=== PATIENT | female | born 1965 | race Caucasian/White ===

== ENCOUNTER → 2017-01-21 | Outpatient (CLI) | payer MEDICAID ==
[2016-05-16 10:22] VITALS: BP 119/72
[2017-01-21 15:20] LABS: BILIRUBIN,URINE NEGATIVE (NEGATIVE); BLOOD/HEMOGLOBIN,URINE 1+ (NEGATIVE); GLUCOSE, URINE NEGATIVE (NEGATIVE); KETONES,URINE NEGATIVE (NEGATIVE); LEUKOCYTE ESTERASE ,URINE 2+ (NEGATIVE); NITRITES,URINE NEGATIVE (NEGATIVE); PH,URINE 6.5 (5.0 - 8.0); PROTEIN,URINE NEGATIVE (NEGATIVE); UROBILINOGEN,URINE NORMAL (NORMAL)
[2017-01-21 15:28] LABS: AMORPHOUS SEDIMENT,UR TRACE /HPF (NEGATIVE); APPEARANCE,URINE CLEAR (CLEAR); BACTERIA,URINE TRACE /HPF (NEGATIVE); COLOR,URINE YELLOW (YELLOW); MUCUS,URINE RARE /HPF (NEGATIVE); SQUAMOUS EPITHELIAL CELL,UR FEW /HPF (NEGATIVE)
== END ==
LOC: LAB 14:57
PROVIDERS: ATTEND Family Medicine
DX: R30.9 Painful micturition, unspecified (principal)
CPT/HCPCS: 81001

== ENCOUNTER 2021-08-27 13:02 | Observation (INO) ==
--- NOTE | 2021-08-27 13:23 | DR.NAUSEAF ---
HPI Time Seen Time Seen by Provider: 08/27/21 13:23 Complaints Chief Complaint:: Family states pt has c/o nausea since this am. She lives with a family member that is currently admitted for covid. Pt unable to provide any information. COVID-19 Coronavirus risk:travel/contact w/high risk person: Yes Has patient experienced Coronavirus symptoms: No Mode of Arrival Mode of Arrival: Wheelchair Timing Onset of Chief Complaint: 08/27/21 PMH PMH Past Medical History: Yes Past Medical History: Seizures Past Surgical History: Yes Surgical History: Other Family History History of Family Medical Conditions: Yes Family Medical History: Cancer, Heart Failure and Hypertension Social History Do you use any recreational Drugs:: No Travel Risk Coronavirus risk:travel/contact w/high risk person: Yes Has patient experienced Coronavirus symptoms: No Infectious screening In the last 2 months have you had wt loss of >10#?: NO Have you had fever, night sweats or hemotysis?: No Have you traveled outside the country in the last 6 months?: No Isolation: Droplet PE Vital Signs Vitals: Temperature 98.5 F Pulse Rate 70 Respiratory Rate 18 Blood Pressure [Left Calf] 119/72 Blood Pressure [Right Arm] 128/81 Blood Pressure [Left Arm] 110/62 Blood Pressure 128/83 O2 Sat by Pulse Oximetry 94 ROR Labs Reviewed Result Diagrams: 08/27/21 13:50 08/27/21 13:50 Laboratory: WBC 3.1 X10^3/uL (3.6-10.0) L 08/27/21 13:50 RBC 4.78 X10^6/uL (3.5-5.4) 08/27/21 13:50 Hgb 12.4 g/dL (12.0-16.0) 08/27/21 13:50 Hct 37.3 % (36.0-47.0) 08/27/21 13:50 MCV 78.1 fL (80.0-100.0) L 08/27/21 13:50 MCH 26.0 pg (27.0-34.0) L 08/27/21 13:50 MCHC 33.3 g/dL (33.0-35.0) 08/27/21 13:50 RDW 15.5 % (11.6-16.5) 08/27/21 13:50 Plt Count 212 X10^3/uL (150.0-450.0) 08/27/21 13:50 MPV 6.3 fL (7.4-11.0) L 08/27/21 13:50 Neut % (Auto) 40.1 % (42.0-75.0) L 08/27/21 13:50 Lymph % (Auto) 46.2 % (21.0-51.0) 08/27/21 13:50 [place] % (Auto) 12.9 % (0.0-13.0) 08/27/21 13:50 Eos % (Auto) 0.2 % (0.9-2.9) L 08/27/21 13:50 Baso % (Auto) 0.6 % (0.2-1.0) 08/27/21 13:50 Neut # (Auto) 1.2 x10^3/uL (2.2-4.8) L 08/27/21 13:50 Lymph # (Auto) 1.4 X10^3/uL (1.3-2.9) 08/27/21 13:50 [place] # (Auto) 0.4 x10^3/uL (0.3-0.8) 08/27/21 13:50 Eos # (Auto) 0.0 x10^3/uL (0.0-0.2) 08/27/21 13:50 Baso # (Auto) 0.0 X10^3/uL (0.0-0.1) 08/27/21 13:50 Absolute Nucleated RBC 0.2 /100WBC 08/27/21 13:50 D-Dimer 0.32 ug/ml (0.0-0.57) 08/27/21 13:52 Sample Site Lr 08/27/21 14:38 ABG pH 7.370 (7.35-7.45) 08/27/21 14:38 ABG pCO2 48.0 mmHg (35.0-45.0) H 08/27/21 14:38 ABG pO2 63.0 mmHg (80.0-100.0) L 08/27/21 14:38 ABG HCO3 27.7 mmol/L (22-26) H 08/27/21 14:38 ABG O2 Saturation 91.0 % (90-100) 08/27/21 14:38 ABG Base Excess 1.8 mmol/L (-2.0-2.0) 08/27/21 14:38 [place] Test Pos 08/27/21 14:38 A-a Gradient 27.0 mmHg 08/27/21 14:38 FiO2 21.0 08/27/21 14:38 Blood Gas 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 08/27/21 14:38 Sodium 134 mmol/L (136-145) L 08/27/21 13:50 Corrected Sodium TNP 08/27/21 13:50 Potassium 4.0 mmol/L (3.5-5.1) 08/27/21 13:50 Chloride 98 mmol/L (98-107) 08/27/21 13:50 Carbon Dioxide 32.0 mmol/L (21-32) 08/27/21 13:50 BUN 6 mg/dL (7-18) L 08/27/21 13:50 Creatinine 0.91 mg/dL (0.55-1.02) 08/27/21 13:50 Est GFR (MDRD) Af Amer > 60 (>60) 08/27/21 13:50 Est GFR (MDRD) Non-Af > 60 (>60) 08/27/21 13:50 Glucose 98 mg/dL (65-99) 08/27/21 13:50 Calcium 8.2 mg/dL (8.5-10.1) L 08/27/21 13:50 Corrected Calcium 9.0 mg/dL (8.5-10.1) 08/27/21 13:50 Ferritin 128 ng/mL (8-252) 08/27/21 13:50 Total Bilirubin 0.20 mg/dL (0.2-1.0) 08/27/21 13:50 AST 16 Units/L (15-37) 08/27/21 13:50 ALT 21 Units/L (12-78) 08/27/21 13:50 Alkaline Phosphatase 106 Units/L (46-116) 08/27/21 13:50 C-Reactive Protein 3.70 mg/L (0-3.0) H 08/27/21 13:50 B-Natriuretic Peptide 18.4 pg/mL (0-79) 08/27/21 13:52 Total Protein 6.5 g/dL (6.4-8.2) 08/27/21 13:50 Albumin 3.0 g/dL (3.4-5.0) L 08/27/21 13:50 Globulin 3.5 g/dL (2.5-4.5) 08/27/21 13:50 Albumin/Globulin Ratio 0.9 Ratio (1.1-2.1) L 08/27/21 13:50 Amylase 34 Units/L (25-115) 08/27/21 13:50 Lipase 98 Units/L (73-393) 08/27/21 13:50 Specimen Type Cancelled 08/27/21 14:05 Urine Color Cancelled 08/27/21 14:05 Urine Appearance Cancelled 08/27/21 14:05 Urine pH Cancelled 08/27/21 14:05 Ur Specific [place] Cancelled 08/27/21 14:05 Urine Protein Cancelled 08/27/21 14:05 Urine Glucose (UA) Cancelled 08/27/21 14:05 Urine Ketones Cancelled 08/27/21 14:05 Urine Occult Blood Cancelled 08/27/21 14:05 Urine Nitrite Cancelled 08/27/21 14:05 Urine Bilirubin Cancelled 08/27/21 14:05 Urine Urobilinogen Cancelled 08/27/21 14:05 Ur Leukocyte Esterase Cancelled 08/27/21 14:05 Urine RBC 0-2 /HPF (0-3) 08/27/21 14:00 Urine WBC None seen /HPF (0-5) 08/27/21 14:00 Ur Squamous Epith Cells Few /HPF (NEGATIVE) 08/27/21 14:00 Urine Bacteria Trace /HPF (NEGATIVE) 08/27/21 14:00 Urine Mucus Few /HPF (NEGATIVE) 08/27/21 14:00 Ur Culture Indicated? No/not indicated 08/27/21 14:00 Influenza Type A Ag Negative-presumptive (NEGATIVE) 08/27/21 13:48 Influenza Type B Ag Negative-presumptive (NEGATIVE) 08/27/21 13:48 SARS CoV-2 RNA Rapid MOJGAN Positive (NEGATIVE) A 08/27/21 13:48 Opioid Opioid Risk Tool Age (Rosalio box if 16-45): No History of Preadolescent Sexual Abuse: No Total: 0 Total Score Risk Category: Low Risk Copyright: [place] LR predicting aberrant behaviors Instructions Forms: EUA Consent
[2021-08-27] MEDS ORDERED: NS 1,000 ML IV 1,000 ML IV ONE (13:31)
[2021-08-27] MEDS ORDERED: ZOFRAN INJ 4 MG VIAL IVP ONE (13:31)
[2021-08-27] MEDS ORDERED: NS 1,000 ML IV 1,000 ML ONE (13:39)
[2021-08-27] MEDS ORDERED: ZOFRAN INJ 4 MG VIAL ONE (13:39)
[2021-08-27 14:01] LABS: BASOPHILS % (AUTO) 0.6 % (0.2-1.0); EOSINOPHILS % (AUTO) 0.2 % (0.9-2.9); HEMATOCRIT 37.3 % (36.0-47.0); HEMOGLOBIN 12.4 g/dL (12.0-16.0); LYMPHOCYTES # (AUTO) 1.4 X10^3/uL (1.3-2.9); LYMPHOCYTES % (AUTO) 46.2 % (21.0-51.0); MEAN CORPUSCULAR HGB CONC 33.3 g/dL (33.0-35.0); MEAN CORPUSCULAR VOLUME 78.1 fL (80.0-100.0); MEAN PLATELET VOLUME 6.3 fL (7.4-11.0); MONOCYTES # (AUTO) 0.4 x10^3/uL (0.3-0.8); MONOCYTES % (AUTO) 12.9 % (0.0-13.0); NEUTROPHILS # (AUTO) 1.2 x10^3/uL (2.2-4.8); NEUTROPHILS % (AUTO) 40.1 % (42.0-75.0); PLATELET COUNT 212 X10^3/uL (150.0-450.0); RED BLOOD COUNT 4.78 X10^6/uL (3.5-5.4); RED CELL DISTRIBUTION WIDTH 15.5 % (11.6-16.5); WHITE BLOOD COUNT 3.1 X10^3/uL (3.6-10.0)
[2021-08-27 14:09] LABS: ALANINE AMINOTRANSFERASE 21 Units/L (12-78); ALKALINE PHOSPHATASE 106 Units/L (46-116); AMYLASE 34 Units/L (25-115); ASPARTATE AMINO TRANSFERASE 16 Units/L (15-37); BLOOD UREA NITROGEN 6 mg/dL (7-18); CALCIUM 8.2 mg/dL (8.5-10.1); CHLORIDE 98 mmol/L (98-107); CREATININE 0.91 mg/dL (0.55-1.02); LIPASE 98 Units/L (73-393); SODIUM 134 mmol/L (136-145); TOTAL PROTEIN 6.5 g/dL (6.4-8.2); eGFR NON BLACK RACES > 60 (>60)
[2021-08-27 14:24] LABS: BILIRUBIN,URINE NEGATIVE (NEGATIVE); BLOOD/HEMOGLOBIN,URINE 1+ (NEGATIVE); GLUCOSE, URINE NEGATIVE (NEGATIVE); KETONES,URINE NEGATIVE (NEGATIVE); LEUKOCYTE ESTERASE ,URINE NEGATIVE (NEGATIVE); NITRITES,URINE NEGATIVE (NEGATIVE); PROTEIN,URINE NEGATIVE (NEGATIVE); UROBILINOGEN,URINE NORMAL (NORMAL)
[2021-08-27 14:35] LABS: APPEARANCE,URINE CLEAR (CLEAR); COLOR,URINE YELLOW (YELLOW)
[2021-08-27 14:36] LABS: BACTERIA,URINE TRACE /HPF (NEGATIVE); RBC,URINE 0-2 /HPF (0-3); SQUAMOUS EPITHELIAL CELL,UR FEW /HPF (NEGATIVE)
[2021-08-27 14:37] LABS: MUCUS,URINE FEW /HPF (NEGATIVE)
--- NOTE | 2021-08-27 14:57 | RAD ---
HISTORYSOB, COUGHING, COVID + VNS IMPLANTSTUDYCHEST, 1 VIEWCOMPARISONNoneFINDINGSAccounting for AP technique and low lung volumes, the cardiac silhouette is normal in size. Vagus nerve stimulator noted. Imaged lungs are hypoinflated but grossly clear. There is no significant pleural effusion or pneumothorax. 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
[2021-08-27 15:00] LABS: ABG BASE EXCESS 1.8 mmol/L (-2.0-2.0); ABG HCO3 27.7 mmol/L (22-26)
[2021-08-27 15:01] LABS: ABG ALLEN TEST POS
[2021-08-27] MEDS ORDERED: REGEN-COV VIAL 10 ML, DRUG FILTER EXTENSION SET * 1 EA in NS 100 ML IV 100 ML IV ONE ×2 (17:13)
[2021-08-27] MEDS ORDERED: TYLENOL 325 MG TAB PO ONE (17:13)
[2021-08-27] MEDS ORDERED: ZOFRAN INJ 4 MG VIAL IVP PRN (17:31)
[2021-08-27 19:14] VITALS: BMI 31.6
[2021-08-27] MEDS: NS 1,000 ML IV 1,000 ML IV SCH (19:31)
[2021-08-27] MEDS: BROVANA IN SCH ×2 (21:03→21:54)
[2021-08-27] MEDS: PULMICORT NEB TX 0.5 MG NEB SCH ×2 (21:03→21:54)
[2021-08-27] MEDS ORDERED: KEPPRA TAB 500 MG ONE (21:16)
[2021-08-27] MEDS: LAMICTAL TAB 100 MG PO SCH (21:20)
[2021-08-27] MEDS ORDERED: KEPPRA TAB 500 MG PO SCH (22:00)
[2021-08-27] MEDS: PEPCID 20 MG IV PREMIX* 20 MG/50 ML BAG IV SCH (22:23)
[2021-08-28] MEDS: NS 1,000 ML IV 1,000 ML IV SCH ×4 (02:00→18:10)
[2021-08-28 05:16] LABS: BASOPHILS % (AUTO) 0.4 % (0.2-1.0); EOSINOPHILS % (AUTO) 0.3 % (0.9-2.9); HEMATOCRIT 36.6 % (36.0-47.0); HEMOGLOBIN 12.2 g/dL (12.0-16.0); LYMPHOCYTES # (AUTO) 1.5 X10^3/uL (1.3-2.9); LYMPHOCYTES % (AUTO) 44.9 % (21.0-51.0); MEAN CORPUSCULAR HGB CONC 33.2 g/dL (33.0-35.0); MEAN CORPUSCULAR VOLUME 78.3 fL (80.0-100.0); MEAN PLATELET VOLUME 6.3 fL (7.4-11.0); MONOCYTES # (AUTO) 0.3 x10^3/uL (0.3-0.8); NEUTROPHILS # (AUTO) 1.5 x10^3/uL (2.2-4.8); NEUTROPHILS % (AUTO) 45.4 % (42.0-75.0); PLATELET COUNT 204 X10^3/uL (150.0-450.0); RED BLOOD COUNT 4.68 X10^6/uL (3.5-5.4); RED CELL DISTRIBUTION WIDTH 15.6 % (11.6-16.5); WHITE BLOOD COUNT 3.4 X10^3/uL (3.6-10.0)
[2021-08-28 05:29] LABS: ALANINE AMINOTRANSFERASE 22 Units/L (12-78); ALBUMIN 2.9 g/dL (3.4-5.0); ALKALINE PHOSPHATASE 102 Units/L (46-116); ASPARTATE AMINO TRANSFERASE 17 Units/L (15-37); BLOOD UREA NITROGEN 7 mg/dL (7-18); CALCIUM 7.8 mg/dL (8.5-10.1); CARBON DIOXIDE 30.1 mmol/L (21-32); CHLORIDE 102 mmol/L (98-107); COR CA(FOR HYPOALB) 8.7 mg/dL (8.5-10.1); MAGNESIUM 2.2 mg/dL (1.7-2.9); SODIUM 138 mmol/L (136-145); TOTAL PROTEIN 6.3 g/dL (6.4-8.2); eGFR NON BLACK RACES > 60 (>60)
[2021-08-28] MEDS: KEPPRA TAB 500 MG PO SCH ×3 (07:37→20:59)
[2021-08-28] MEDS ORDERED: REGEN-COV VIAL 10 ML, DRUG FILTER EXTENSION SET * 1 EA in NS 100 ML IV 100 ML IV ONE ×2 (08:13)
[2021-08-28] MEDS ORDERED: TYLENOL 325 MG TAB PO ONE (08:20)
[2021-08-28] MEDS ORDERED: SOLU-Medrol 125 MG VIAL IVP ONE (08:20)
[2021-08-28] MEDS ORDERED: BENADRYL INJ 50 MG VIAL IV ONE (08:20)
[2021-08-28] MEDS: LOVENOX INJ 30 MG SYR SC SCH ×2 (09:05→21:02)
[2021-08-28] MEDS: LAMICTAL TAB 100 MG PO SCH ×2 (09:06→20:59)
--- NOTE | 2021-08-28 09:53 | DR.H&P ---
H&P History & Physical for Day of: H&P Date: 08/27/21 Chief Complaint Chief Complaint: Nausea Allergies Allergies Allergy/AdvReac Type Severity Reaction Status Date / Time No Known Drug Allergies Allergy Verified 03/05/18 10:04 History of Present Illness History of Present Illness: 55-year-old white female who presented to ED for nausea. She reports she lives with a family member who is currently in hospital for Covid-19. Patient is a poor historian and is difficult to take a history on her. Past Medical History Past Medical History: Seizures Additional Medical History: CP Past Surgical History Surgical History: Other Family History Family Medical History: Cancer, Heart Failure and Hypertension Social History Does patient currently use any type of tobacco product: No Have you used tobacco products in the last 12 months: No Type of Tobacco Use: None Does any household member use tobacco: No Alcohol Use: None Drug Use: None Medications Home Medications: No Known Drug Allergies Allergy (Verified 03/05/18 10:04) Labs Result Diagrams: 08/28/21 04:35 08/28/21 04:35 Labs: Laboratory WBC 3.4 X10^3/uL (3.6-10.0) L 08/28/21 04:35 RBC 4.68 X10^6/uL (3.5-5.4) 08/28/21 04:35 Hgb 12.2 g/dL (12.0-16.0) 08/28/21 04:35 Hct 36.6 % (36.0-47.0) 08/28/21 04:35 MCV 78.3 fL (80.0-100.0) L 08/28/21 04:35 MCH 26.0 pg (27.0-34.0) L 08/28/21 04:35 MCHC 33.2 g/dL (33.0-35.0) 08/28/21 04:35 RDW 15.6 % (11.6-16.5) 08/28/21 04:35 Plt Count 204 X10^3/uL (150.0-450.0) 08/28/21 04:35 MPV 6.3 fL (7.4-11.0) L 08/28/21 04:35 Neut % (Auto) 45.4 % (42.0-75.0) 08/28/21 04:35 Lymph % (Auto) 44.9 % (21.0-51.0) 08/28/21 04:35 [place] % (Auto) 9.0 % (0.0-13.0) 08/28/21 04:35 Eos % (Auto) 0.3 % (0.9-2.9) L 08/28/21 04:35 Baso % (Auto) 0.4 % (0.2-1.0) 08/28/21 04:35 Neut # (Auto) 1.5 x10^3/uL (2.2-4.8) L 08/28/21 04:35 Lymph # (Auto) 1.5 X10^3/uL (1.3-2.9) 08/28/21 04:35 [place] # (Auto) 0.3 x10^3/uL (0.3-0.8) 08/28/21 04:35 Eos # (Auto) 0.0 x10^3/uL (0.0-0.2) 08/28/21 04:35 Baso # (Auto) 0.0 X10^3/uL (0.0-0.1) 08/28/21 04:35 Absolute Nucleated RBC 0.2 /100WBC 08/28/21 04:35 PT 13.4 SECONDS (11.8-14.3) 08/28/21 04:35 INR Target Range - 08/28/21 04:35 INR 1.07 (0.8-1.3) 08/28/21 04:35 APTT 30.9 SECONDS (22.9-36.5) 08/28/21 04:35 PTT Comment - 08/28/21 04:35 D-Dimer 0.32 ug/ml (0.0-0.57) 08/27/21 13:52 Sample Site Lr 08/27/21 14:38 ABG pH 7.370 (7.35-7.45) 08/27/21 14:38 ABG pCO2 48.0 mmHg (35.0-45.0) H 08/27/21 14:38 ABG pO2 63.0 mmHg (80.0-100.0) L 08/27/21 14:38 ABG HCO3 27.7 mmol/L (22-26) H 08/27/21 14:38 ABG O2 Saturation 91.0 % (90-100) 08/27/21 14:38 ABG Base Excess 1.8 mmol/L (-2.0-2.0) 08/27/21 14:38 [place] Test Pos 08/27/21 14:38 A-a Gradient 27.0 mmHg 08/27/21 14:38 FiO2 21.0 08/27/21 14:38 Blood 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 08/27/21 14:38 Sodium 138 mmol/L (136-145) 08/28/21 04:35 Corrected Sodium TNP 08/28/21 04:35 Potassium 3.9 mmol/L (3.5-5.1) 08/28/21 04:35 Chloride 102 mmol/L (98-107) 08/28/21 04:35 Carbon Dioxide 30.1 mmol/L (21-32) 08/28/21 04:35 BUN 7 mg/dL (7-18) 08/28/21 04:35 Creatinine 0.80 mg/dL (0.55-1.02) 08/28/21 04:35 Est GFR (MDRD) Af Amer > 60 (>60) 08/28/21 04:35 Est GFR (MDRD) Non-Af > 60 (>60) 08/28/21 04:35 Glucose 91 mg/dL (65-99) 08/28/21 04:35 Calcium 7.8 mg/dL (8.5-10.1) L 08/28/21 04:35 Corrected Calcium 8.7 mg/dL (8.5-10.1) 08/28/21 04:35 Magnesium 2.2 mg/dL (1.7-2.9) 08/28/21 04:35 Ferritin 128 ng/mL (8-252) 08/27/21 13:50 Total Bilirubin 0.20 mg/dL (0.2-1.0) 08/28/21 04:35 AST 17 Units/L (15-37) 08/28/21 04:35 ALT 22 Units/L (12-78) 08/28/21 04:35 Alkaline Phosphatase 102 Units/L (46-116) 08/28/21 04:35 C-Reactive Protein 3.70 mg/L (0-3.0) H 08/27/21 13:50 B-Natriuretic Peptide 18.4 pg/mL (0-79) 08/27/21 13:52 Total Protein 6.3 g/dL (6.4-8.2) L 08/28/21 04:35 Albumin 2.9 g/dL (3.4-5.0) L 08/28/21 04:35 Globulin 3.4 g/dL (2.5-4.5) 08/28/21 04:35 Albumin/Globulin Ratio 0.9 Ratio (1.1-2.1) L 08/28/21 04:35 Amylase 34 Units/L (25-115) 08/27/21 13:50 Lipase 98 Units/L (73-393) 08/27/21 13:50 Specimen Type Cancelled 08/27/21 14:05 Urine Color Cancelled 08/27/21 14:05 Urine Appearance Cancelled 08/27/21 14:05 Urine pH Cancelled 08/27/21 14:05 Ur Specific [place] Cancelled 08/27/21 14:05 Urine Protein Cancelled 08/27/21 14:05 Urine Glucose (UA) Cancelled 08/27/21 14:05 Urine Ketones Cancelled 08/27/21 14:05 Urine Occult Blood Cancelled 08/27/21 14:05 Urine Nitrite Cancelled 08/27/21 14:05 Urine Bilirubin Cancelled 08/27/21 14:05 Urine Urobilinogen Cancelled 08/27/21 14:05 Ur Leukocyte Esterase Cancelled 08/27/21 14:05 Urine RBC 0-2 /HPF (0-3) 08/27/21 14:00 Urine WBC None seen /HPF (0-5) 08/27/21 14:00 Ur Squamous Epith Cells Few /HPF (NEGATIVE) 08/27/21 14:00 Urine Bacteria Trace /HPF (NEGATIVE) 08/27/21 14:00 Urine Mucus Few /HPF (NEGATIVE) 08/27/21 14:00 Ur Culture Indicated? No/not indicated 08/27/21 14:00 Influenza Type A Ag Negative-presumptive (NEGATIVE) 08/27/21 13:48 Influenza Type B Ag Negative-presumptive (NEGATIVE) 08/27/21 13:48 SARS CoV-2 RNA Rapid MOJGAN Positive (NEGATIVE) A 08/27/21 13:48 Review of Systems Constitutional: Weakness Eyes: No Symptoms Reported ENT: No Symptoms Reported Respiratory: Cough Cardiovascular: No Symptoms Reported Gastrointestinal: Nausea Genitourinary: No Symptoms Reported Musculoskeletal: No Symptoms Reported Skin: No Symptoms Reported Neurological: No Symptoms Reported Physical Exam Vital Signs: Temperature 99.2 F Pulse Rate 70 Respiratory Rate 20 Blood Pressure [Left Calf] 119/72 Blood Pressure [Right Arm] 128/81 Blood Pressure [Left Arm] 110/62 Blood Pressure 132/79 O2 Sat by Pulse Oximetry 100 Oriented: Unable to test Eyes: Normal Ear: Normal Nose: Normal Throat: Normal Respiratory: Rhonchi Throughout Cardiovascular: Normal : Normal Auscultation: Bowel Sounds: Normal Palpation: Normal Tenderness: Normal Skin: Normal Musculoskeletal: Normal Psychiatric: Normal Mood Description: Calm Affect: Normal Speech Pattern: Unclear Assessment/Plan (1) Intellectual disability: Status: Chronic (2) Epilepsy: Qualifiers: Epilepsy type: epileptic spasms Intractability: not intractable Status epilepticus: without status epilepticus Qualified Code(s): G40.822 - Epileptic spasms, not intractable, without status epilepticus Status: Chronic (3) COVID-19: Status: Acute Plan: Regenecov protocol (4) Hypoxia: Status: Acute Plan: supplemental O2 Review H&P Reviewed: Yes Patient was examined?: Yes
[2021-08-28] MEDS: PEPCID 20 MG IV PREMIX* 20 MG/50 ML BAG IV SCH ×2 (10:19→21:00)
[2021-08-28] MEDS: BROVANA IN SCH ×2 (10:19→20:56)
[2021-08-28] MEDS: PULMICORT NEB TX 0.5 MG NEB SCH ×2 (10:20→20:56)
--- NOTE | 2021-08-28 18:02 | PCM.PROG ---
Progress Note Progress Note for Day of Date of Exam: 08/28/21 Subjective Subjective: Awake this am. Has not had Regene Cov yet. Will have infusion done this am per protocol. O2 sat is 97% on 2L [place] Past Medical Family Social History Past Med/Fam/Surg Hx: No changes since H&P Allergies: Allergies No Known Drug Allergies Allergy (Verified 03/05/18 10:04) Review of Systems ROS: No change since H&P Vital Signs and I&O's Vital Signs: Temperature 97.6 F Pulse Rate 75 Respiratory Rate 23 Blood Pressure [Left Calf] 119/72 Blood Pressure [Right Arm] 128/81 Blood Pressure [Left Arm] 110/62 Blood Pressure 166/95 O2 Sat by Pulse Oximetry 97 Intake and Output: Intake & Output 08/26/21 08/27/21 08/28/21 08/29/21 11:59 11:59 11:59 11:59 Intake Total 1850 / 1850 1815 / 1815 Output Total 500 / 500 Balance 1350 / 1350 1815 / 1815 Physical Exam Oriented: Unable to test Eyes: Normal Ear: Normal Nose: Normal Throat: Normal Cardiovascular: Normal : Normal Auscultation: Bowel Sounds: Normal Tenderness: Normal Skin: Normal Musculoskeletal: Normal Psychiatric: Normal Mood Description: Calm Affect: Normal Speech Pattern: Unclear Laboratory and Diagnostics Result Diagrams: 08/28/21 04:35 08/28/21 04:35 Labs: Laboratory WBC 3.4 X10^3/uL (3.6-10.0) L 08/28/21 04:35 RBC 4.68 X10^6/uL (3.5-5.4) 08/28/21 04:35 Hgb 12.2 g/dL (12.0-16.0) 08/28/21 04:35 Hct 36.6 % (36.0-47.0) 08/28/21 04:35 MCV 78.3 fL (80.0-100.0) L 08/28/21 04:35 MCH 26.0 pg (27.0-34.0) L 08/28/21 04:35 MCHC 33.2 g/dL (33.0-35.0) 08/28/21 04:35 RDW 15.6 % (11.6-16.5) 08/28/21 04:35 Plt Count 204 X10^3/uL (150.0-450.0) 08/28/21 04:35 MPV 6.3 fL (7.4-11.0) L 08/28/21 04:35 Neut % (Auto) 45.4 % (42.0-75.0) 08/28/21 04:35 Lymph % (Auto) 44.9 % (21.0-51.0) 08/28/21 04:35 [place] % (Auto) 9.0 % (0.0-13.0) 08/28/21 04:35 Eos % (Auto) 0.3 % (0.9-2.9) L 08/28/21 04:35 Baso % (Auto) 0.4 % (0.2-1.0) 08/28/21 04:35 Neut # (Auto) 1.5 x10^3/uL (2.2-4.8) L 08/28/21 04:35 Lymph # (Auto) 1.5 X10^3/uL (1.3-2.9) 08/28/21 04:35 [place] # (Auto) 0.3 x10^3/uL (0.3-0.8) 08/28/21 04:35 Eos # (Auto) 0.0 x10^3/uL (0.0-0.2) 08/28/21 04:35 Baso # (Auto) 0.0 X10^3/uL (0.0-0.1) 08/28/21 04:35 Absolute Nucleated RBC 0.2 /100WBC 08/28/21 04:35 PT 13.4 SECONDS (11.8-14.3) 08/28/21 04:35 INR Target Range - 08/28/21 04:35 INR 1.07 (0.8-1.3) 08/28/21 04:35 APTT 30.9 SECONDS (22.9-36.5) 08/28/21 04:35 PTT Comment - 08/28/21 04:35 D-Dimer 0.32 ug/ml (0.0-0.57) 08/27/21 13:52 Sample Site Lr 08/27/21 14:38 ABG pH 7.370 (7.35-7.45) 08/27/21 14:38 ABG pCO2 48.0 mmHg (35.0-45.0) H 08/27/21 14:38 ABG pO2 63.0 mmHg (80.0-100.0) L 08/27/21 14:38 ABG HCO3 27.7 mmol/L (22-26) H 08/27/21 14:38 ABG O2 Saturation 91.0 % (90-100) 08/27/21 14:38 ABG Base Excess 1.8 mmol/L (-2.0-2.0) 08/27/21 14:38 [place] Test Pos 08/27/21 14:38 A-a Gradient 27.0 mmHg 08/27/21 14:38 FiO2 21.0 08/27/21 14:38 Blood Gas 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/27/21 14:38 Sodium 138 mmol/L (136-145) 08/28/21 04:35 Corrected Sodium TNP 08/28/21 04:35 Potassium 3.9 mmol/L (3.5-5.1) 08/28/21 04:35 Chloride 102 mmol/L (98-107) 08/28/21 04:35 Carbon Dioxide 30.1 mmol/L (21-32) 08/28/21 04:35 BUN 7 mg/dL (7-18) 08/28/21 04:35 Creatinine 0.80 mg/dL (0.55-1.02) 08/28/21 04:35 Est GFR (MDRD) Af Amer > 60 (>60) 08/28/21 04:35 Est GFR (MDRD) Non-Af > 60 (>60) 08/28/21 04:35 Glucose 91 mg/dL (65-99) 08/28/21 04:35 Calcium 7.8 mg/dL (8.5-10.1) L 08/28/21 04:35 Corrected Calcium 8.7 mg/dL (8.5-10.1) 08/28/21 04:35 Magnesium 2.2 mg/dL (1.7-2.9) 08/28/21 04:35 Ferritin 128 ng/mL (8-252) 08/27/21 13:50 Total Bilirubin 0.20 mg/dL (0.2-1.0) 08/28/21 04:35 AST 17 Units/L (15-37) 08/28/21 04:35 ALT 22 Units/L (12-78) 08/28/21 04:35 Alkaline Phosphatase 102 Units/L (46-116) 08/28/21 04:35 C-Reactive Protein 3.70 mg/L (0-3.0) H 08/27/21 13:50 B-Natriuretic Peptide 18.4 pg/mL (0-79) 08/27/21 13:52 Total Protein 6.3 g/dL (6.4-8.2) L 08/28/21 04:35 Albumin 2.9 g/dL (3.4-5.0) L 08/28/21 04:35 Globulin 3.4 g/dL (2.5-4.5) 08/28/21 04:35 Albumin/Globulin Ratio 0.9 Ratio (1.1-2.1) L 08/28/21 04:35 Amylase 34 Units/L (25-115) 08/27/21 13:50 Lipase 98 Units/L (73-393) 08/27/21 13:50 Specimen Type Cancelled 08/27/21 14:05 Urine Color Cancelled 08/27/21 14:05 Urine Appearance Cancelled 08/27/21 14:05 Urine pH Cancelled 08/27/21 14:05 Ur Specific [place] Cancelled 08/27/21 14:05 Urine Protein Cancelled 08/27/21 14:05 Urine Glucose (UA) Cancelled 08/27/21 14:05 Urine Ketones Cancelled 08/27/21 14:05 Urine Occult Blood Cancelled 08/27/21 14:05 Urine Nitrite Cancelled 08/27/21 14:05 Urine Bilirubin Cancelled 08/27/21 14:05 Urine Urobilinogen Cancelled 08/27/21 14:05 Ur Leukocyte Esterase Cancelled 08/27/21 14:05 Urine RBC 0-2 /HPF (0-3) 08/27/21 14:00 Urine WBC None seen /HPF (0-5) 08/27/21 14:00 Ur Squamous Epith Cells Few /HPF (NEGATIVE) 08/27/21 14:00 Urine Bacteria Trace /HPF (NEGATIVE) 08/27/21 14:00 Urine Mucus Few /HPF (NEGATIVE) 08/27/21 14:00 Ur Culture Indicated? No/not indicated 08/27/21 14:00 Influenza Type A Ag Negative-presumptive (NEGATIVE) 08/27/21 13:48 Influenza Type B Ag Negative-presumptive (NEGATIVE) 08/27/21 13:48 SARS CoV-2 RNA Rapid MOJGAN Positive (NEGATIVE) A 08/27/21 13:48 Radiology Reviewed: Yes Plan (1) Intellectual disability: Status: Chronic (2) Epilepsy: Status: Chronic Qualifiers: Epilepsy type: epileptic spasms Intractability: not intractable Status epilepticus: without status epilepticus Qualified Code(s): G40.822 - Epileptic spasms, not intractable, without status epilepticus Plan: Resume home anti-epilectic meds. (3) COVID-19: Status: Acute Narrative Support Text: Pt. has not had Regen Cov yet. Plan: ReGENco protocol this am. (4) Hypoxia: Status: Acute Narrative Support Text: Stable. Plan: supplemental O2
[2021-08-28] MEDS ORDERED: PATIENT'S HOME MEDICATION PO SCH (19:00)
[2021-08-29] MEDS: NS 1,000 ML IV 1,000 ML IV SCH ×2 (02:54→06:23)
[2021-08-29 05:55] LABS: BASOPHILS % (AUTO) 0.3 % (0.2-1.0); EOSINOPHILS % (AUTO) 0.1 % (0.9-2.9); HEMATOCRIT 35.4 % (36.0-47.0); HEMOGLOBIN 12.1 g/dL (12.0-16.0); LYMPHOCYTES # (AUTO) 1.4 X10^3/uL (1.3-2.9); MEAN CORPUSCULAR HEMOGLOBIN 26.1 pg (27.0-34.0); MEAN CORPUSCULAR HGB CONC 34.1 g/dL (33.0-35.0); MEAN CORPUSCULAR VOLUME 76.4 fL (80.0-100.0); MEAN PLATELET VOLUME 6.7 fL (7.4-11.0); MONOCYTES # (AUTO) 0.4 x10^3/uL (0.3-0.8); NEUTROPHILS # (AUTO) 4.3 x10^3/uL (2.2-4.8); NEUTROPHILS % (AUTO) 70.6 % (42.0-75.0); PLATELET COUNT 211 X10^3/uL (150.0-450.0); RED BLOOD COUNT 4.63 X10^6/uL (3.5-5.4); RED CELL DISTRIBUTION WIDTH 15.3 % (11.6-16.5); WHITE BLOOD COUNT 6.1 X10^3/uL (3.6-10.0)
[2021-08-29 06:02] LABS: ALANINE AMINOTRANSFERASE 21 Units/L (12-78); ALBUMIN 3.1 g/dL (3.4-5.0); ALKALINE PHOSPHATASE 102 Units/L (46-116); ASPARTATE AMINO TRANSFERASE 18 Units/L (15-37); BLOOD UREA NITROGEN 5 mg/dL (7-18); CALCIUM 8.2 mg/dL (8.5-10.1); CARBON DIOXIDE 28.2 mmol/L (21-32); CHLORIDE 96 mmol/L (98-107); COR CA(FOR HYPOALB) 8.9 mg/dL (8.5-10.1); CREATININE 0.74 mg/dL (0.55-1.02); SODIUM 131 mmol/L (136-145); TOTAL PROTEIN 6.7 g/dL (6.4-8.2); eGFR NON BLACK RACES > 60 (>60)
[2021-08-29] MEDS ORDERED: POTASSIUM CHLORIDE LIQ 20 MEQ UDC PO PRN (06:24)
[2021-08-29] MEDS ORDERED: POTASSIUM CHL 60 MEQ/NS 0.45% 500 ML IV PRN (06:24)
[2021-08-29] MEDS ORDERED: KLOR-CON PO PRN (06:24)
[2021-08-29] MEDS ORDERED: MICRO K EXTEN CAP 10 MEQ PO PRN (06:24)
[2021-08-29] MEDS ORDERED: K-DUR TAB 20 MEQ PO PRN (06:24)
[2021-08-29] MEDS ORDERED: K-RIDER 10 MEQ/NS 100 ML 10 MEQ/100 ML BAG IV PRN (06:24)
[2021-08-29] MEDS ORDERED: POTASSIUM CHL 40 MEQ/NS 0.45% 500 ML IV PRN (06:24)
[2021-08-29] MEDS: BROVANA IN SCH (08:25)
[2021-08-29] MEDS: PULMICORT NEB TX 0.5 MG NEB SCH (08:25)
[2021-08-29] MEDS: KEPPRA TAB 500 MG PO SCH (08:38)
[2021-08-29] MEDS: PEPCID 20 MG IV PREMIX* 20 MG/50 ML BAG IV SCH (08:48)
[2021-08-29] MEDS: LOVENOX INJ 30 MG SYR SC SCH (08:48)
[2021-08-29] MEDS: LAMICTAL TAB 100 MG PO SCH (08:48)
[2021-08-29 08:58] VITALS: BP 119/58
--- NOTE | 2021-08-29 09:12 | RAD ---
HISTORYCOVID-19STUDYAP [id number] size normal. Compared to prior, increasing interstitial prominence in the left lower lobe without evidence for airspace consolidation or pleural fluid. Stable appearance of vagal neurostimulator device. 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 However, a developing left lower lobe infiltrate may be present. Follow suggestedElectronically signed by: MARTY SCHNEIDER (Aug 29, 2021 09:10:55)
[2021-08-29] MEDS ORDERED: ESLICARBAZEPINE 600 MG PO SCH (21:00)
== END 2021-08-29 11:30 | disposition home or self-care (01) ==
LOC: ER 13:02 → ICU 13:02
PROVIDERS: ADMIT Family Medicine; ATTEND Family Medicine
DX: R26.89 Other abnormalities of gait and mobility; R09.02 Hypoxemia; E86.0 Dehydration; U07.1 COVID-19; R79.82 Elevated C-reactive protein (CRP); G40.822 Epileptic spasms, not intractable, without status epilepticus; R53.1 Weakness; R06.02 Shortness of breath; F79 Unspecified intellectual disabilities

== ENCOUNTER 2021-09-05 10:48 | Observation (INO) ==
--- NOTE | 2021-09-05 11:01 | DR.AMS ---
HPI Time Seen Time Seen by Provider: 09/05/21 10:58 Complaint Cheif Complaint Doctors Comments: 55 y/o female brought in via EMS for shortness of breath and altered mental status. Pt diagnosed with covid recently, was hospitalized last week for it. Has a cough. Pt cannot recall any other information, other than a cough. + very confused, speech is nonsensical. Per family, vomited x 2 early this am. + having generalized weakness, and worsening confusion. (per RN who cared for her last week, probable degree of baseline confusion). No report of fever, chills. Pulse ox reportedly in the 80s on EMS a rrival. COVID-19 Has patient experienced Coronavirus symptoms: Yes Coronavirus symptoms experienced: Coughing Reviewed Nurses Notes Reviewed: Yes Source History Provided: Family Member and EMS Mode of Arrival Mode of Arrival: Stretcher PMH PMH Past Medical History: Seizures Past Surgical History: Yes Surgical History: Other Family History Family Medical History: Cancer, Heart Failure and Hypertension Social History Do you use any recreational Drugs:: No ROS Review of Systems Unable to Obtain Due To: Altered mental status PE Vitals Vital Signs: Temp Pulse Resp BP BP BP BP 09/05/21 13:45 71 18 09/05/21 13:30 72 26 H 144/86 09/05/21 13:15 75 24 09/05/21 13:00 77 23 127/71 09/05/21 12:45 78 21 09/05/21 12:30 79 27 H 121/79 09/05/21 12:15 79 24 09/05/21 12:01 80 24 118/84 09/05/21 12:00 82 24 09/05/21 11:45 82 09/05/21 11:30 78 26 H 127/79 09/05/21 11:15 78 26 H 09/05/21 11:05 76 25 H 09/05/21 10:48 98.2 F 76 22 124/68 08/29/21 08:00 119/58 03/05/18 11:09 128/81 05/16/16 10:21 119/72 05/14/16 08:00 110/62 Pulse Ox 09/05/21 13:45 100 09/05/21 13:30 97 09/05/21 13:15 98 09/05/21 13:00 98 09/05/21 12:45 09/05/21 12:30 83 L 09/05/21 12:15 94 L 09/05/21 12:01 95 09/05/21 12:00 88 L 09/05/21 11:45 96 09/05/21 11:30 93 L 09/05/21 11:15 90 L 09/05/21 11:05 95 09/05/21 10:48 97 08/29/21 08:00 03/05/18 11:09 05/16/16 10:21 05/14/16 08:00 General Limitations: No Limitations General Appearance: Alert and In No Apparent Distress Head Head Exam: Normal Inspection, Atraumatic and Normocephalic Eyes Eye exam: Normal Appearance, PERRL and EOMI ENT ENT Exam: Normal Exam Neck Neck Exam: Normal Inspection and Full ROM; negative Tenderness Chest Chest Inspection: Normal Inspection Respiratory Respiratory Exam: Normal Lung Sounds Bilat; negative Accessory Muscle Use and R espiratory Distress Respiratory Exam: Bilateral: Decreased Breath Sounds (at bases) Cardiovascular Cardiovascular Exam: Regular Rate, Normal Rhythm and Normal Heart Sounds Abdominal Exam Abdominal Exam: Normal Inspection, Normal Bowel Sounds and Soft; negative Tenderness Extremities Extremities Exam: Normal Inspection; negative Tenderness and Edema Neurological Neurological Exam: Alert, CN II-XII Intact and Other (+ confused, answers "I don't know"); negative Motor Sensory Deficit MDM Additional Information Obtained Findings: DDX: Covid pneumonia, bacterial pneumonia, dementia, ICH, electrolyte abn COURSE Treatment Treatment: 55 y/o female, ill with covid past week, having increasing weakness/confusion, no focal deficits. Is confused. Poor historian. W/u initiated. 1334 - pt remains stable, pulse ox running 94-98% here on room air, put on 2 L N/C. LAbs, urinalysis acceptable. No obvious pneumonia on CXR. Is still Covid +. CT of the brain, without acute abnormalities. Recommend admission for further evaluation/observation of altered mental status. Discussed with covering hospitalist, Dr Cox, accepts the admission. ROR Labs Reviewed Laboratory Results Reviewed?: Yes Result Diagrams: 09/05/21 11:20 09/05/21 11:20 Laboratory: WBC 5.9 X10^3/uL (3.6-10.0) 09/05/21 11:20 RBC 5.14 X10^6/uL (3.5-5.4) 09/05/21 11:20 Hgb 13.3 g/dL (12.0-16.0) 09/05/21 11:20 Hct 39.4 % (36.0-47.0) 09/05/21 11:20 MCV 76.7 fL (80.0-100.0) L 09/05/21 11:20 MCH 25.9 pg (27.0-34.0) L 09/05/21 11:20 MCHC 33.8 g/dL (33.0-35.0) 09/05/21 11:20 RDW 15.3 % (11.6-16.5) 09/05/21 11:20 Plt Count 359 X10^3/uL (150.0-450.0) 09/05/21 11:20 MPV 6.5 fL (7.4-11.0) L 09/05/21 11:20 Neut % (Auto) 61.1 % (42.0-75.0) 09/05/21 11:20 Lymph % (Auto) 22.3 % (21.0-51.0) 09/05/21 11:20 [place] % (Auto) 12.1 % (0.0-13.0) 09/05/21 11:20 Eos % (Auto) 3.3 % (0.9-2.9) H 09/05/21 11:20 Baso % (Auto) 1.2 % (0.2-1.0) H 09/05/21 11:20 Neut # (Auto) 3.6 x10^3/uL (2.2-4.8) 09/05/21 11:20 Lymph # (Auto) 1.3 X10^3/uL (1.3-2.9) 09/05/21 11:20 [place] # (Auto) 0.7 x10^3/uL (0.3-0.8) 09/05/21 11:20 Eos # (Auto) 0.2 x10^3/uL (0.0-0.2) 09/05/21 11:20 Baso # (Auto) 0.1 X10^3/uL (0.0-0.1) 09/05/21 11:20 Absolute Nucleated RBC 0.1 /100WBC 09/05/21 11:20 Sodium 134 mmol/L (136-145) L 09/05/21 11:20 Corrected Sodium TNP 09/05/21 11:20 Potassium 3.9 mmol/L (3.5-5.1) 09/05/21 11:20 Chloride 95 mmol/L (98-107) L 09/05/21 11:20 Carbon Dioxide 32.0 mmol/L (21-32) 09/05/21 11:20 BUN 5 mg/dL (7-18) L 09/05/21 11:20 Creatinine 0.78 mg/dL (0.55-1.02) 09/05/21 11:20 Est GFR (MDRD) Af Amer > 60 (>60) 09/05/21 11:20 Est GFR (MDRD) Non-Af > 60 (>60) 09/05/21 11:20 Glucose 98 mg/dL (65-99) 09/05/21 11:20 Calcium 9.2 mg/dL (8.5-10.1) 09/05/21 11:20 Corrected Calcium 9.8 mg/dL (8.5-10.1) 09/05/21 11:20 Total Bilirubin 0.60 mg/dL (0.2-1.0) 09/05/21 11:20 AST 12 Units/L (15-37) L 09/05/21 11:20 ALT 31 Units/L (12-78) 09/05/21 11:20 Alkaline Phosphatase 100 Units/L (46-116) 09/05/21 11:20 Creatine Kinase 42 Units/L (26-192) 09/05/21 11:20 CK-MB (CK-2) < 1.0 ng/mL (0-4.0) 09/05/21 11:20 CK/CKMB % Calc 2.4 % (<4) 09/05/21 11:20 Troponin I < 0.02 ng/mL (0-1.5) 09/05/21 11:20 Total Protein 8.1 g/dL (6.4-8.2) 09/05/21 11:20 Albumin 3.3 g/dL (3.4-5.0) L 09/05/21 11:20 Globulin 4.8 g/dL (2.5-4.5) H 09/05/21 11:20 Albumin/Globulin Ratio 0.7 Ratio (1.1-2.1) L 09/05/21 11:20 Specimen Type Catherized urine 09/05/21 12:23 Urine Color Yellow (YELLOW) 09/05/21 12: Urine Appearance Clear (CLEAR) 09/05/21 12: Urine pH 7.0 (5.0 - 8.0) 09/05/21 12:23 Ur Specific [place] 1.010 (1.000-1.030) 09/05/21 12:23 Urine Protein 2+ (NEGATIVE) 09/05/21 12: Urine Glucose (UA) Negative (NEGATIVE) 09/05/21 12: Urine Ketones Negative (NEGATIVE) 09/05/21 12: Urine Occult Blood 2+ (NEGATIVE) 09/05/21 12: Urine Nitrite Negative (NEGATIVE) 09/05/21 12: Urine Bilirubin Negative (NEGATIVE) 09/05/21 12:23 Urine Urobilinogen Normal (NORMAL) 09/05/21 12:23 Ur Leukocyte Esterase 1+ (NEGATIVE) 09/05/21 12:23 Urine RBC 3-5 /HPF (0-3) A 09/05/21 12:23 Urine WBC 0-2 /HPF (0-5) 09/05/21 12:23 Ur Squamous Epith Cells Rare /HPF (NEGATIVE) 09/05/21 12:23 Amorphous Sediment Trace /HPF (NEGATIVE) 09/05/21 12:23 Urine Bacteria Negative /HPF (NEGATIVE) 09/05/21 12:23 Ur Culture Indicated? No/not indicated 09/05/21 12:23 SARS-CoV-2 (PCR) Positive (NEGATIVE) A 09/05/21 11:16 Influenza Type A (PCR) Negative (NEGATIVE) 09/05/21 11:16 Influenza Type B (PCR) Negative (NEGATIVE) 09/05/21 11:16 RSV (PCR) Negative (NEGATIVE) 09/05/21 11:16 Other Results Comments: CBC and CMP unremarkable. U/A accetpable. Still Covid +. XRAY XRAY Interpreted by: Both X-ray Results: CXR without obvious infiltrate. CT brain without acute abnormalities, EKG Rate: 78 [place]: Normal Rhythm: NSR Block: None ST: Nonsp (+ baseline artifact from shaking) Opioid Opioid Risk Tool Age (Rosalio box if 16-45): Yes History of Preadolescent Sexual Abuse: No Total: 1 Total Score Risk Category: Low Risk Copyright: Amaury SAUCEDO predicting aberrant behaviors Diagnosis Discharge Problem: COVID-19 Altered mental status Qualifiers: Altered mental status type: unspecified Qualified Code(s): R41.82 - Altered mental status, unspecified
[2021-09-05] MEDS ORDERED: NS 500 ML IV 500 ML IV ONE ×2 (11:04→11:15)
[2021-09-05 11:06] VITALS: BMI 31.6
[2021-09-05 11:32] LABS: BASOPHILS # (AUTO) 0.1 X10^3/uL (0.0-0.1); BASOPHILS % (AUTO) 1.2 % (0.2-1.0); EOSINOPHILS # (AUTO) 0.2 x10^3/uL (0.0-0.2); EOSINOPHILS % (AUTO) 3.3 % (0.9-2.9); HEMATOCRIT 39.4 % (36.0-47.0); HEMOGLOBIN 13.3 g/dL (12.0-16.0); LYMPHOCYTES # (AUTO) 1.3 X10^3/uL (1.3-2.9); LYMPHOCYTES % (AUTO) 22.3 % (21.0-51.0); MEAN CORPUSCULAR HEMOGLOBIN 25.9 pg (27.0-34.0); MEAN CORPUSCULAR HGB CONC 33.8 g/dL (33.0-35.0); MEAN CORPUSCULAR VOLUME 76.7 fL (80.0-100.0); MEAN PLATELET VOLUME 6.5 fL (7.4-11.0); MONOCYTES # (AUTO) 0.7 x10^3/uL (0.3-0.8); MONOCYTES % (AUTO) 12.1 % (0.0-13.0); NEUTROPHILS # (AUTO) 3.6 x10^3/uL (2.2-4.8); NEUTROPHILS % (AUTO) 61.1 % (42.0-75.0); PLATELET COUNT 359 X10^3/uL (150.0-450.0); RED BLOOD COUNT 5.14 X10^6/uL (3.5-5.4); RED CELL DISTRIBUTION WIDTH 15.3 % (11.6-16.5); WHITE BLOOD COUNT 5.9 X10^3/uL (3.6-10.0)
[2021-09-05 11:46] LABS: ALANINE AMINOTRANSFERASE 31 Units/L (12-78); ALBUMIN 3.3 g/dL (3.4-5.0); ALKALINE PHOSPHATASE 100 Units/L (46-116); ASPARTATE AMINO TRANSFERASE 12 Units/L (15-37); BLOOD UREA NITROGEN 5 mg/dL (7-18); CALCIUM 9.2 mg/dL (8.5-10.1); CHLORIDE 95 mmol/L (98-107); COR CA(FOR HYPOALB) 9.8 mg/dL (8.5-10.1); CREATININE 0.78 mg/dL (0.55-1.02); SODIUM 134 mmol/L (136-145); TOTAL PROTEIN 8.1 g/dL (6.4-8.2); eGFR NON BLACK RACES > 60 (>60)
--- NOTE | 2021-09-05 11:58 | CT ---
HISTORYVomiting, altered mental status, dizziness, COVID-19STUDYCT head without contrastTechnique: Axial noncontrast images with coronal and sagittal reformats. Dose reduction procedures were used with mA/kv adjusted for body size.COMPARISONNoneFINDINGSThe ventricles are normal in size shape and position. There are no focal areas of abnormal attenuation to suggest recent or remote CVA, hemorrhage, contusion, inflammation, mass lesion, or extra-axial fluid collection. The visualized sinuses are clear. The calvarium is intact.IMPRESSIONNo significant intracranial abnormality identifiedElectronically signed by: YANCI AHN (Sep 05, 2021 11:56:42)
[2021-09-05 12:09] LABS: CKMB % 2.4 % (<4); CREATINE KINASE 42 Units/L (26-192); CREATINE KINASE MB < 1.0 ng/mL (0-4.0); TROPONIN I < 0.02 ng/mL (0-1.5)
[2021-09-05 12:40] LABS: BILIRUBIN,URINE NEGATIVE (NEGATIVE); BLOOD/HEMOGLOBIN,URINE 2+ (NEGATIVE); GLUCOSE, URINE NEGATIVE (NEGATIVE); KETONES,URINE NEGATIVE (NEGATIVE); LEUKOCYTE ESTERASE ,URINE 1+ (NEGATIVE); NITRITES,URINE NEGATIVE (NEGATIVE); PROTEIN,URINE 2+ (NEGATIVE); UROBILINOGEN,URINE NORMAL (NORMAL)
[2021-09-05 12:41] LABS: APPEARANCE,URINE CLEAR (CLEAR); COLOR,URINE YELLOW (YELLOW)
[2021-09-05 12:47] LABS: BACTERIA,URINE NEGATIVE /HPF (NEGATIVE); SQUAMOUS EPITHELIAL CELL,UR RARE /HPF (NEGATIVE)
[2021-09-05 12:48] LABS: AMORPHOUS SEDIMENT,UR TRACE /HPF (NEGATIVE)
--- NOTE | 2021-09-05 12:59 | RAD ---
HISTORYDOUGH, DYSPNEA, H/O COVIDSTUDYCHEST, 1 [id number] lungs are not well inflated. As a result, there are hypoventilatory changes.But there is no evidence for pneumonia or pleural effusion.Heart size is normal. Vascular calcifications are present compatible with atherosclerosis.Degenerative changes in the right shoulder, unchanged from prior study.Left side stimulator leads are stable.EKG leads are noted.IMPRESSION1. No significant abnormalityElectronically signed by: Lupillo Medina (Sep 05, 2021 12:58:38)
[2021-09-05] MEDS: D5 1/2 NS 1,000 ML 1,000 ML IV SCH (16:28)
[2021-09-05] MEDS: ZOFRAN INJ 4 MG VIAL IVP PRN (19:56)
[2021-09-05] MEDS ORDERED: COLACE CAP 100 MG PO PRN (20:27)
[2021-09-05] MEDS ORDERED: KEPPRA TAB 500 MG ONE (20:35)
[2021-09-05] MEDS: LAMICTAL TAB 100 MG PO SCH (20:38)
[2021-09-05] MEDS: ESLICARBAZEPINE 600 MG PO SCH (21:01)
[2021-09-05] MEDS: PULMICORT NEB TX 0.5 MG NEB SCH (21:09)
[2021-09-05] MEDS: BROVANA IN SCH (21:09)
[2021-09-05] MEDS ORDERED: KEPPRA TAB 500 MG PO SCH (22:00)
[2021-09-06] MEDS: D5 1/2 NS 1,000 ML 1,000 ML IV SCH (04:07)
[2021-09-06 05:14] LABS: BASOPHILS # (AUTO) 0.1 X10^3/uL (0.0-0.1); BASOPHILS % (AUTO) 1.4 % (0.2-1.0); EOSINOPHILS # (AUTO) 0.2 x10^3/uL (0.0-0.2); EOSINOPHILS % (AUTO) 3.2 % (0.9-2.9); HEMATOCRIT 36.5 % (36.0-47.0); HEMOGLOBIN 12.3 g/dL (12.0-16.0); LYMPHOCYTES # (AUTO) 1.2 X10^3/uL (1.3-2.9); LYMPHOCYTES % (AUTO) 18.1 % (21.0-51.0); MEAN CORPUSCULAR HEMOGLOBIN 25.9 pg (27.0-34.0); MEAN CORPUSCULAR HGB CONC 33.7 g/dL (33.0-35.0); MEAN CORPUSCULAR VOLUME 76.7 fL (80.0-100.0); MEAN PLATELET VOLUME 6.5 fL (7.4-11.0); MONOCYTES # (AUTO) 0.6 x10^3/uL (0.3-0.8); MONOCYTES % (AUTO) 8.7 % (0.0-13.0); NEUTROPHILS # (AUTO) 4.4 x10^3/uL (2.2-4.8); NEUTROPHILS % (AUTO) 68.6 % (42.0-75.0); PLATELET COUNT 332 X10^3/uL (150.0-450.0); RED BLOOD COUNT 4.76 X10^6/uL (3.5-5.4); RED CELL DISTRIBUTION WIDTH 15.1 % (11.6-16.5); WHITE BLOOD COUNT 6.4 X10^3/uL (3.6-10.0)
[2021-09-06 05:23] LABS: ALANINE AMINOTRANSFERASE 26 Units/L (12-78); ALBUMIN 2.8 g/dL (3.4-5.0); ALKALINE PHOSPHATASE 89 Units/L (46-116); ASPARTATE AMINO TRANSFERASE 14 Units/L (15-37); BLOOD UREA NITROGEN 4 mg/dL (7-18); CALCIUM 8.5 mg/dL (8.5-10.1); CARBON DIOXIDE 29.8 mmol/L (21-32); CHLORIDE 98 mmol/L (98-107); COR CA(FOR HYPOALB) 9.5 mg/dL (8.5-10.1); COR NA(FOR HYPERGLY) 133 mmol/L (136-145); CREATININE 0.68 mg/dL (0.55-1.02); SODIUM 132 mmol/L (136-145); TOTAL PROTEIN 7.1 g/dL (6.4-8.2); eGFR NON BLACK RACES > 60 (>60)
--- NOTE | 2021-09-06 06:28 | DR.H&P ---
H&P History & Physical for Day of: H&P Date: 09/05/21 Chief Complaint Chief Complaint: Altered mental status Shortness of breath, Generalized weakness Allergies Allergies Allergy/AdvReac Type Severity Reaction Status Date / Time No Known Drug Allergies Allergy Verified 03/05/18 10:04 History of Present Illness History of Present Illness: Pt is a 55 y/o female past medical history of Intellectual disability, Seizures, presenting with shortness of breath and al tered mental status. Pt was diagnosed with covid-19 recently and was hospitalized last week. She is a poor historian due to baseline intellectual disability, however per ED physician, family states confusion worse. Pulse ox reportedly in the 80s on EMS arrival. Pt had nausea this morning and vomited. In the ED, labs/imaging: Wbc 5.9, Hgb 13.3, Plt 359, Na 134, K 3.9, Creatinine 0.78, Glucose 98, Troponin negative, UA negative, CT head: No significant intracranial abnormality identified. CXR: 1. No significant abnormality. Pt was started on supplemental O2, IVF D5 1/2 NS@80ml/h, home medications restarted. Pt is still positive for COVID-19 that is likely source of symptoms. Will continue to monitor and follow up labs in the morning. Past Medical History Past Medical History: Seizures Additional Medical History: CP Past Surgical History Surgical History: Other Family History Family Medical History: Cancer, Heart Failure and Hypertension Social History Does patient currently use any type of tobacco product: No Have you used tobacco products in the last 12 months: No Type of Tobacco Use: None Does any household member use tobacco: No Alcohol Use: None Drug Use: None Medications Home Medications: No Known Drug Allergies Allergy (Verified 03/05/18 10:04) Labs Result Diagrams: 09/06/21 04:48 09/06/21 04:48 Labs: Laboratory WBC 6.4 X10^3/uL (3.6-10.0) 09/06/21 04:48 RBC 4.76 X10^6/uL (3.5-5.4) 09/06/21 04:48 Hgb 12.3 g/dL (12.0-16.0) 09/06/21 04:48 Hct 36.5 % (36.0-47.0) 09/06/21 04:48 MCV 76.7 fL (80.0-100.0) L 09/06/21 04:48 MCH 25.9 pg (27.0-34.0) L 09/06/21 04:48 MCHC 33.7 g/dL (33.0-35.0) 09/06/21 04:48 RDW 15.1 % (11.6-16.5) 09/06/21 04:48 Plt Count 332 X10^3/uL (150.0-450.0) 09/06/21 04:48 MPV 6.5 fL (7.4-11.0) L 09/06/21 04:48 Neut % (Auto) 68.6 % (42.0-75.0) 09/06/21 04:48 Lymph % (Auto) 18.1 % (21.0-51.0) L 09/06/21 04:48 [place] % (Auto) 8.7 % (0.0-13.0) 09/06/21 04:48 Eos % (Auto) 3.2 % (0.9-2.9) H 09/06/21 04:48 Baso % (Auto) 1.4 % (0.2-1.0) H 09/06/21 04:48 Neut # (Auto) 4.4 x10^3/uL (2.2-4.8) 09/06/21 04:48 Lymph # (Auto) 1.2 X10^3/uL (1.3-2.9) L 09/06/21 04:48 [place] # (Auto) 0.6 x10^3/uL (0.3-0.8) 09/06/21 04:48 Eos # (Auto) 0.2 x10^3/uL (0.0-0.2) 09/06/21 04:48 Baso # (Auto) 0.1 X10^3/uL (0.0-0.1) 09/06/21 04:48 Absolute Nucleated RBC 0.1 /100WBC 09/06/21 04:48 Sodium 132 mmol/L (136-145) L 09/06/21 04:48 Corrected Sodium 133 mmol/L (136-145) L 09/06/21 04:48 Potassium 3.8 mmol/L (3.5-5.1) 09/06/21 04:48 Chloride 98 mmol/L (98-107) 09/06/21 04:48 Carbon Dioxide 29.8 mmol/L (21-32) 09/06/21 04:48 BUN 4 mg/dL (7-18) L 09/06/21 04:48 Creatinine 0.68 mg/dL (0.55-1.02) 09/06/21 04:48 Est GFR (MDRD) Af Amer > 60 (>60) 09/06/21 04:48 Est GFR (MDRD) Non-Af > 60 (>60) 09/06/21 04:48 Glucose 122 mg/dL (65-99) H 09/06/21 04:48 Calcium 8.5 mg/dL (8.5-10.1) 09/06/21 04:48 Corrected Calcium 9.5 mg/dL (8.5-10.1) 09/06/21 04:48 Total Bilirubin 0.40 mg/dL (0.2-1.0) 09/06/21 04:48 AST 14 Units/L (15-37) L 09/06/21 04:48 ALT 26 Units/L (12-78) 09/06/21 04:48 Alkaline Phosphatase 89 Units/L (46-116) 09/06/21 04:48 Creatine Kinase 42 Units/L (26-192) 09/05/21 11:20 CK-MB (CK-2) < 1.0 ng/mL (0-4.0) 09/05/21 11:20 CK/CKMB % Calc 2.4 % (<4) 09/05/21 11:20 Troponin I < 0.02 ng/mL (0-1.5) 09/05/21 11:20 Total Protein 7.1 g/dL (6.4-8.2) 09/06/21 04:48 Albumin 2.8 g/dL (3.4-5.0) L 09/06/21 04:48 Globulin 4.3 g/dL (2.5-4.5) 09/06/21 04:48 Albumin/Globulin Ratio 0.7 Ratio (1.1-2.1) L 09/06/21 04:48 Specimen Type Catherized urine 09/05/21 12:23 Urine Color Yellow (YELLOW) 09/05/21 12: Urine Appearance Clear (CLEAR) 09/05/21 12: Urine pH 7.0 (5.0 - 8.0) 09/05/21 12:23 Ur Specific [place] 1.010 (1.000-1.030) 09/05/21 12:23 Urine Protein 2+ (NEGATIVE) 09/05/21 12:23 Urine Glucose (UA) Negative (NEGATIVE) 09/05/21 12:23 Urine Ketones Negative (NEGATIVE) 09/05/21 12:23 Urine Occult Blood 2+ (NEGATIVE) 09/05/21 12:23 Urine Nitrite Negative (NEGATIVE) 09/05/21 12:23 Urine Bilirubin Negative (NEGATIVE) 09/05/21 12:23 Urine Urobilinogen Normal (NORMAL) 09/05/21 12:23 Ur Leukocyte Esterase 1+ (NEGATIVE) 09/05/21 12:23 Urine RBC 3-5 /HPF (0-3) A 09/05/21 12:23 Urine WBC 0-2 /HPF (0-5) 09/05/21 12:23 Ur Squamous Epith Cells Rare /HPF (NEGATIVE) 09/05/21 12:23 Amorphous Sediment Trace /HPF (NEGATIVE) 09/05/21 12:23 Urine Bacteria Negative /HPF (NEGATIVE) 09/05/21 12:23 Ur Culture Indicated? No/not indicated 09/05/21 12:23 SARS-CoV-2 (PCR) Positive (NEGATIVE) A 09/05/21 11:16 Influenza Type A (PCR) Negative (NEGATIVE) 09/05/21 11:16 Influenza Type B (PCR) Negative (NEGATIVE) 09/05/21 11:16 RSV (PCR) Negative (NEGATIVE) 09/05/21 11:16 Review of Systems Constitutional: Weakness and Other (intellectual disability, confusion) Eyes: No Symptoms Reported ENT: No Symptoms Reported Respiratory: No Symptoms Reported Cardiovascular: No Symptoms Reported Gastrointestinal: Nausea and Vomiting Genitourinary: No Symptoms Reported Musculoskeletal: No Symptoms Reported Skin: No Symptoms Reported Neurological: No Symptoms Reported Physical Exam Vital Signs: Temperature 98.0 F Pulse Rate 76 Respiratory Rate 24 Blood Pressure [Left Calf] 119/72 Blood Pressure [Right Arm] 128/81 Blood Pressure [Left Arm] 110/62 Blood Pressure 142/81 O2 Sat by Pulse Oximetry 97 Oriented: Other (intellectual disability, confusion) Eyes: Normal Ear: Normal Nose: Normal Throat: Normal Respiratory: Clear Throughout Cardiovascular: Normal : Normal Auscultation: Bowel Sounds: Normal Palpation: Normal Tenderness: Normal Skin: Normal Musculoskeletal: Normal Psychiatric: Normal Mood Description: Calm and Appropriate Affect: Normal Speech Pattern: Clear and Appropriate Assessment/Plan (1) Altered mental status: Qualifiers: Altered mental status type: unspecified Qualified Code(s): R41.82 - Altered mental status, unspecified Status: Acute (2) Hypoxia: Status: Acute (3) COVID-19: Status: Acute (4) Intellectual disability: Status: Chronic Review H&P Reviewed: Yes Patient was examined?: Yes
[2021-09-06] MEDS ORDERED: POTASSIUM CHL 60 MEQ/NS 0.45% 500 ML IV PRN (07:10)
[2021-09-06] MEDS ORDERED: POTASSIUM CHL 40 MEQ/NS 0.45% 500 ML IV PRN (07:10)
[2021-09-06] MEDS ORDERED: POTASSIUM CHLORIDE LIQ 20 MEQ UDC PO PRN (07:10)
[2021-09-06] MEDS ORDERED: KLOR-CON PO PRN (07:10)
[2021-09-06] MEDS ORDERED: MICRO K EXTEN CAP 10 MEQ PO PRN (07:10)
[2021-09-06] MEDS ORDERED: K-RIDER 10 MEQ/NS 100 ML 10 MEQ/100 ML BAG IV PRN (07:10)
[2021-09-06] MEDS ORDERED: MAGNESIUM SULFATE 1 GRAM/100 mL PREMIX 1 G/100 ML BAG IV PRN (07:10)
[2021-09-06] MEDS ORDERED: K-DUR TAB 20 MEQ PO PRN (07:10)
[2021-09-06] MEDS ORDERED: NS 100 ML IV 100 ML ONE (08:38)
[2021-09-06] MEDS: KEPPRA TAB 500 MG PO SCH ×3 (09:13→21:06)
[2021-09-06] MEDS: LAMICTAL TAB 100 MG PO SCH ×2 (09:14→20:53)
[2021-09-06] MEDS: NS 1,000 ML IV 1,000 ML IV SCH ×2 (09:14→23:14)
[2021-09-06] MEDS: LOVENOX INJ 40 MG SYR SC SCH (09:14)
[2021-09-06] MEDS: ZOFRAN INJ 4 MG VIAL IVP PRN (09:14)
[2021-09-06] MEDS: PULMICORT NEB TX 0.5 MG NEB SCH ×2 (09:15→20:28)
[2021-09-06] MEDS: BROVANA IN SCH ×2 (09:15→20:28)
--- NOTE | 2021-09-06 09:27 | PCM.PROG ---
Progress Note Progress Note for Day of Date of Exam: 09/06/21 Subjective Subjective: Pt is a 55 y/o female past medical history of Intellectual disability, Seizures, admitted for altered mental status, nausea/vomiting, and Covid-19 infection. This morning she appears to be more alert. She is complaining of nausea and abdominal pain. Has decreased appetite. She is tender in epigastric and RUQ regions on exam. Labs/imaging: Wbc 6.4, Hgb 12.3, Plt 332, Na 133, K 3.8, Creatinine 0.68, Glucose 122. Will get CTAP to evaluate abdominal pain. Change IVF to NS@75ml/h, increase frequency of IV zofran 4mg to Q4h prn, and start on carafate. Continue supplemental O2, wean as tolerated. Will continue to monitor and follow up results. Past Medical Family Social History Past Med/Fam/Surg Hx: No changes since H&P Allergies: Allergies No Known Drug Allergies Allergy (Verified 03/05/18 10:04) Review of Systems ROS: No change since H&P Vital Signs and I&O's Vital Signs: Temperature 98 F Pulse Rate 68 Respiratory Rate 23 Blood Pressure [Left Calf] 119/72 Blood Pressure [Right Arm] 128/81 Blood Pressure [Left Arm] 110/62 Blood Pressure 141/89 O2 Sat by Pulse Oximetry 99 Intake and Output: Intake & Output 09/03/21 09/04/21 09/05/21 09/06/21 23:59 23:59 23:59 23:59 Intake Total 620 / 620 842 / 842 Output Total 700 / 700 750 / 750 Balance -80 / -80 92 / 92 Physical Exam Oriented: Other (intellectual disability) Eyes: Normal Ear: Normal Nose: Normal Throat: Normal Respiratory: Normal Cardiovascular: Normal : Normal Auscultation: Bowel Sounds: Normal Tenderness: Epigastric Skin: Normal Musculoskeletal: Normal Psychiatric: Normal Mood Description: Calm and Appropriate Affect: Normal Speech Pattern: Clear Laboratory and Diagnostics Result Diagrams: 09/06/21 04:48 09/06/21 04:48 Labs: Laboratory WBC 6.4 X10^3/uL (3.6-10.0) 09/06/21 04:48 RBC 4.76 X10^6/uL (3.5-5.4) 09/06/21 04:48 Hgb 12.3 g/dL (12.0-16.0) 09/06/21 04:48 Hct 36.5 % (36.0-47.0) 09/06/21 04:48 MCV 76.7 fL (80.0-100.0) L 09/06/21 04:48 MCH 25.9 pg (27.0-34.0) L 09/06/21 04:48 MCHC 33.7 g/dL (33.0-35.0) 09/06/21 04:48 RDW 15.1 % (11.6-16.5) 09/06/21 04:48 Plt Count 332 X10^3/uL (150.0-450.0) 09/06/21 04:48 MPV 6.5 fL (7.4-11.0) L 09/06/21 04:48 Neut % (Auto) 68.6 % (42.0-75.0) 09/06/21 04:48 Lymph % (Auto) 18.1 % (21.0-51.0) L 09/06/21 04:48 [place] % (Auto) 8.7 % (0.0-13.0) 09/06/21 04:48 Eos % (Auto) 3.2 % (0.9-2.9) H 09/06/21 04:48 Baso % (Auto) 1.4 % (0.2-1.0) H 09/06/21 04:48 Neut # (Auto) 4.4 x10^3/uL (2.2-4.8) 09/06/21 04:48 Lymph # (Auto) 1.2 X10^3/uL (1.3-2.9) L 09/06/21 04:48 [place] # (Auto) 0.6 x10^3/uL (0.3-0.8) 09/06/21 04:48 Eos # (Auto) 0.2 x10^3/uL (0.0-0.2) 09/06/21 04:48 Baso # (Auto) 0.1 X10^3/uL (0.0-0.1) 09/06/21 04:48 Absolute Nucleated RBC 0.1 /100WBC 09/06/21 04:48 Sodium 132 mmol/L (136-145) L 09/06/21 04:48 Corrected Sodium 133 mmol/L (136-145) L 09/06/21 04:48 Potassium 3.8 mmol/L (3.5-5.1) 09/06/21 04:48 Chloride 98 mmol/L (98-107) 09/06/21 04:48 Carbon Dioxide 29.8 mmol/L (21-32) 09/06/21 04:48 BUN 4 mg/dL (7-18) L 09/06/21 04:48 Creatinine 0.68 mg/dL (0.55-1.02) 09/06/21 04:48 Est GFR (MDRD) Af Amer > 60 (>60) 09/06/21 04:48 Est GFR (MDRD) Non-Af > 60 (>60) 09/06/21 04:48 Glucose 122 mg/dL (65-99) H 09/06/21 04:48 Calcium 8.5 mg/dL (8.5-10.1) 09/06/21 04:48 Corrected Calcium 9.5 mg/dL (8.5-10.1) 09/06/21 04:48 Magnesium 2.3 mg/dL (1.7-2.9) 09/06/21 04:48 Total Bilirubin 0.40 mg/dL (0.2-1.0) 09/06/21 04:48 AST 14 Units/L (15-37) L 09/06/21 04:48 ALT 26 Units/L (12-78) 09/06/21 04:48 Alkaline Phosphatase 89 Units/L (46-116) 09/06/21 04:48 Creatine Kinase 42 Units/L (26-192) 09/05/21 11:20 CK-MB (CK-2) < 1.0 ng/mL (0-4.0) 09/05/21 11:20 CK/CKMB % Calc 2.4 % (<4) 09/05/21 11:20 Troponin I < 0.02 ng/mL (0-1.5) 09/05/21 11:20 Total Protein 7.1 g/dL (6.4-8.2) 09/06/21 04:48 Albumin 2.8 g/dL (3.4-5.0) L 09/06/21 04:48 Globulin 4.3 g/dL (2.5-4.5) 09/06/21 04:48 Albumin/Globulin Ratio 0.7 Ratio (1.1-2.1) L 09/06/21 04:48 Specimen Type Catherized urine 09/05/21 12:23 Urine Color Yellow (YELLOW) 09/05/21 12:23 Urine Appearance Clear (CLEAR) 09/05/21 12:23 Urine pH 7.0 (5.0 - 8.0) 09/05/21 12:23 Ur Specific [place] 1.010 (1.000-1.030) 09/05/21 12:23 Urine Protein 2+ (NEGATIVE) 09/05/21 12:23 Urine Glucose (UA) Negative (NEGATIVE) 09/05/21 12:23 Urine Ketones Negative (NEGATIVE) 09/05/21 12:23 Urine Occult Blood 2+ (NEGATIVE) 09/05/21 12:23 Urine Nitrite Negative (NEGATIVE) 09/05/21 12:23 Urine Bilirubin Negative (NEGATIVE) 09/05/21 12:23 Urine Urobilinogen Normal (NORMAL) 09/05/21 12:23 Ur Leukocyte Esterase 1+ (NEGATIVE) 09/05/21 12:23 Urine RBC 3-5 /HPF (0-3) A 09/05/21 12:23 Urine WBC 0-2 /HPF (0-5) 09/05/21 12:23 Ur Squamous Epith Cells Rare /HPF (NEGATIVE) 09/05/21 12:23 Amorphous Sediment Trace /HPF (NEGATIVE) 09/05/21 12:23 Urine Bacteria Negative /HPF (NEGATIVE) 09/05/21 12:23 Ur Culture Indicated? No/not indicated 09/05/21 12:23 SARS-CoV-2 (PCR) Positive (NEGATIVE) A 09/05/21 11:16 Influenza Type A (PCR) Negative (NEGATIVE) 09/05/21 11:16 Influenza Type B (PCR) Negative (NEGATIVE) 09/05/21 11:16 RSV (PCR) Negative (NEGATIVE) 09/05/21 11:16 Plan (1) Altered mental status: Status: Acute Qualifiers: Altered mental status type: unspecified Qualified Code(s): R41.82 - Altered mental status, unspecified (2) Hypoxia: Status: Acute (3) COVID-19: Status: Acute (4) Intellectual disability: Status: Chronic
--- NOTE | 2021-09-06 09:46 | RAD ---
HISTORYCOVID PNEUMONIASTUDYCHEST x-ray, 1 VIEWCOMPARISONX-ray from previous dayFINDINGSVague hazy density has developed in the left lung likely due pneumonia. No right lung infiltrate is seen. Heart is normal in size. No pneumothorax or pleural effusion is seen. Vagal nerve stimulator device is unchanged in position. Prominent arthritic changes in the right shoulder.IMPRESSIONNew vague infiltrate in the left lung is probably due to pneumonia. Consider possible bacterial pneumonia superimposed upon COVID-19 infection given the unilateral appearance.Electronically signed by: Austin Griffin (Sep 06, 2021 09:44:43)
--- NOTE | 2021-09-06 10:11 | CT ---
HISTORYABDOMINAL PAINSTUDYCT ABDOMEN/PELVIS WITH contrastCOMPARISONNoneTECHNIQUECT images of the abdomen and pelvis were obtained with IV contrast. Dose reduction techniques including Automated Exposure Control (AEC) and adjustment of mA and kV were utilized.FINDINGSThere are areas of dense consolidation within the dependent lungs bilaterally, with additional patchy scattered infiltrates. No pleural effusion. No acute osseous abnormality. A hemangioma within the L3 vertebral body is noted.The liver, gallbladder, spleen, stomach, pancreas, adrenals, and kidneys demonstrate no significant abnormality. Tiny right renal cyst is noted. No radiopaque ureteral stone or hydroureter identified. There is colonic diverticulosis without evidence for acute diverticulitis. No significant thickening or dilatation of the lower GI tract is identified. The bladder is mostly collapsed around a [place] catheter. Gas within the bladder lumen is compatible with catheterization. The uterus is present. The rectum is unremarkable. Foci of gas within the subcutaneous tissues of the lower abdominal wall is likely from recent injection.IMPRESSIONNo acute abnormality within the abdomen or pelvis.Areas of consolidation versus atelectasis within the dependent lungs. Subtle patchy bilateral lung infiltrates, suggesting an atypical/viral pneumonitis.Colonic diverticulosis and other findings as above.Electronically signed by: LUIS ANGEL GRIDER (Sep 06, 2021 10:09:24)
[2021-09-06] MEDS: ESLICARBAZEPINE 600 MG PO SCH (20:53)
[2021-09-06] MEDS ORDERED: TYLENOL 325 MG TAB PO PRN (23:15)
[2021-09-07] MEDS: ZOFRAN INJ 4 MG VIAL IVP PRN (00:53)
[2021-09-07 05:16] LABS: BASOPHILS % (AUTO) 0.9 % (0.2-1.0); EOSINOPHILS # (AUTO) 0.2 x10^3/uL (0.0-0.2); EOSINOPHILS % (AUTO) 4.4 % (0.9-2.9); HEMATOCRIT 34.7 % (36.0-47.0); HEMOGLOBIN 11.8 g/dL (12.0-16.0); LYMPHOCYTES # (AUTO) 1.5 X10^3/uL (1.3-2.9); LYMPHOCYTES % (AUTO) 32.9 % (21.0-51.0); MEAN CORPUSCULAR HEMOGLOBIN 26.1 pg (27.0-34.0); MEAN CORPUSCULAR VOLUME 76.8 fL (80.0-100.0); MEAN PLATELET VOLUME 6.3 fL (7.4-11.0); MONOCYTES # (AUTO) 0.4 x10^3/uL (0.3-0.8); MONOCYTES % (AUTO) 9.8 % (0.0-13.0); NEUTROPHILS # (AUTO) 2.3 x10^3/uL (2.2-4.8); PLATELET COUNT 366 X10^3/uL (150.0-450.0); RED BLOOD COUNT 4.52 X10^6/uL (3.5-5.4); RED CELL DISTRIBUTION WIDTH 15.2 % (11.6-16.5); WHITE BLOOD COUNT 4.5 X10^3/uL (3.6-10.0)
[2021-09-07] MEDS: KEPPRA TAB 500 MG PO SCH (05:19)
[2021-09-07 05:21] LABS: ALANINE AMINOTRANSFERASE 21 Units/L (12-78); ALBUMIN 2.6 g/dL (3.4-5.0); ALKALINE PHOSPHATASE 81 Units/L (46-116); ASPARTATE AMINO TRANSFERASE 11 Units/L (15-37); BLOOD UREA NITROGEN 4 mg/dL (7-18); CALCIUM 8.4 mg/dL (8.5-10.1); CARBON DIOXIDE 27.3 mmol/L (21-32); CHLORIDE 98 mmol/L (98-107); COR CA(FOR HYPOALB) 9.5 mg/dL (8.5-10.1); CREATININE 0.64 mg/dL (0.55-1.02); SODIUM 131 mmol/L (136-145); TOTAL PROTEIN 6.8 g/dL (6.4-8.2); eGFR NON BLACK RACES > 60 (>60)
[2021-09-07] MEDS: PULMICORT NEB TX 0.5 MG NEB SCH (08:20)
[2021-09-07] MEDS: BROVANA IN SCH (08:20)
--- NOTE | 2021-09-07 08:43 | W.DIS.FURT ---
Summary of Discharge Discharge Summary of Date Date of Exam: 09/07/21 Admission Date Date of Admission: 09/05/21 Admission Diagnosis Patient Problems (Updated 09/05/21 @ 14:09 by Raz Garcia) Altered mental status (Acute) R41.82 COVID-19 (Acute) U07.1 Hospital Course: Pt is a 55 y/o female past medical history of Intellectual disability, Seizures, admitted for altered mental status, nausea/vomiting, and Covid-19 infection. Her hospital/treatment course included: IVF, IV zofran prn, carafate, and supplemental O2. CTAP was obtained that was negative for any acute findings. Pt responded well to treatments. She was weaned off supplemental O2 and was at baseline mental status on discharge. Pt was discharged in stable condition, instructed to follow up with pcp in 3-5 days. Vital Signs: Vital Signs (72 hours) 09/05/21 10:48 09/05/21 11:05 09/05/21 11:15 Temperature 98.2 F Pulse Rate 76 76 78 Respiratory Rate 22 25 H 26 H Blood Pressure 124/68 O2 Sat by Pulse Oximetry 97 95 90 L 09/05/21 11:30 09/05/21 11:45 09/05/21 12:00 Temperature Pulse Rate 78 82 82 Respiratory Rate 26 H 24 Blood Pressure 127/79 O2 Sat by Pulse Oximetry 93 L 96 88 L 09/05/21 12:01 09/05/21 12:15 09/05/21 12:30 Temperature Pulse Rate 80 79 79 Respiratory Rate 24 24 27 H Blood Pressure 118/84 121/79 O2 Sat by Pulse Oximetry 95 94 L 83 L 09/05/21 12:45 09/05/21 13:00 09/05/21 13:15 Temperature Pulse Rate 78 77 75 Respiratory Rate 21 23 24 Blood Pressure 127/71 O2 Sat by Pulse Oximetry 98 98 09/05/21 13:30 09/05/21 13:45 09/05/21 14:00 Temperature Pulse Rate 72 71 70 Respiratory Rate 26 H 18 23 Blood Pressure 144/86 137/83 O2 Sat by Pulse Oximetry 97 100 100 09/05/21 14:15 09/05/21 14:30 09/05/21 14:44 Temperature Pulse Rate 71 70 72 Respiratory Rate 23 16 22 Blood Pressure 130/81 142/82 O2 Sat by Pulse Oximetry 100 100 09/05/21 14:45 09/05/21 14:59 09/05/21 15:00 Temperature Pulse Rate 72 72 Respiratory Rate 20 20 26 H Blood Pressure O2 Sat by Pulse Oximetry 95 98 09/05/21 15:15 09/05/21 15:30 09/05/21 15:45 Temperature Pulse Rate 73 78 80 Respiratory Rate 23 26 H 20 Blood Pressure O2 Sat by Pulse Oximetry 99 99 95 09/05/21 16:00 09/05/21 16:15 09/05/21 16:30 Temperature 97.9 F Pulse Rate 79 78 79 Respiratory Rate 23 26 H 26 H Blood Pressure O2 Sat by Pulse Oximetry 95 98 09/05/21 16:45 09/05/21 17:00 09/05/21 17:15 Temperature Pulse Rate 76 78 78 Respiratory Rate 25 H 26 H 27 H Blood Pressure O2 Sat by Pulse Oximetry 100 09/05/21 18:00 09/05/21 19:00 09/05/21 20:00 Temperature 98.0 F Pulse Rate 91 H 81 93 H Respiratory Rate 28 H 28 H 28 H Blood Pressure 126/77 117/71 109/63 O2 Sat by Pulse Oximetry 100 95 97 09/05/21 21:00 09/05/21 21:09 09/05/21 22:00 Temperature Pulse Rate 80 102 H 82 Respiratory Rate 24 28 H Blood Pressure 116/60 113/56 O2 Sat by Pulse Oximetry 97 100 95 09/05/21 23:00 09/05/21 23:30 09/05/21 23:45 Temperature Pulse Rate 88 100 H 99 H Respiratory Rate 24 46 H 44 H Blood Pressure 97/64 O2 Sat by Pulse Oximetry 95 95 09/06/21 00:00 09/06/21 00:15 09/06/21 00:30 Temperature Pulse Rate 86 79 76 Respiratory Rate 30 H 27 H 24 Blood Pressure 108/58 O2 Sat by Pulse Oximetry 98 93 L 95 09/06/21 00:45 09/06/21 01:00 09/06/21 01:15 Temperature 98.2 F Pulse Rate 74 86 83 Respiratory Rate 20 28 H 17 Blood Pressure 150/84 O2 Sat by Pulse Oximetry 95 97 100 09/06/21 01:30 09/06/21 01:45 09/06/21 02:00 Temperature Pulse Rate 81 82 84 Respiratory Rate 21 26 H 29 H Blood Pressure 158/71 O2 Sat by Pulse Oximetry 98 97 98 09/06/21 02:02 09/06/21 02:06 09/06/21 02:15 Temperature Pulse Rate 85 85 84 Respiratory Rate 24 22 28 H Blood Pressure 189/88 158/71 O2 Sat by Pulse Oximetry 98 98 98 09/06/21 02:30 09/06/21 02:45 09/06/21 03:00 Temperature Pulse Rate 83 83 84 Respiratory Rate 22 25 H 28 H Blood Pressure 152/108 O2 Sat by Pulse Oximetry 97 97 96 09/06/21 03:09 09/06/21 03:11 09/06/21 03:15 Temperature Pulse Rate 84 83 86 Respiratory Rate 28 H 28 H 29 H Blood Pressure 158/112 188/81 O2 Sat by Pulse Oximetry 95 97 96 09/06/21 03:30 09/06/21 03:45 09/06/21 04:00 Temperature Pulse Rate 81 83 79 Respiratory Rate 27 H 28 H 28 H Blood Pressure 144/79 O2 Sat by Pulse Oximetry 94 L 96 93 L 09/06/21 04:03 09/06/21 04:15 09/06/21 04:30 Temperature Pulse Rate 79 79 75 Respiratory Rate 29 H 31 H 25 H Blood Pressure 144/79 O2 Sat by Pulse Oximetry 94 L 94 L 95 09/06/21 04:45 09/06/21 05:00 09/06/21 05:15 Temperature Pulse Rate 79 74 72 Respiratory Rate 26 H 25 H 32 H Blood Pressure 143/80 O2 Sat by Pulse Oximetry 97 95 95 09/06/21 05:30 09/06/21 05:45 09/06/21 06:00 Temperature 98.0 F Pulse Rate 79 74 74 Respiratory Rate 31 H 25 H 32 H Blood Pressure 142/81 O2 Sat by Pulse Oximetry 97 94 L 94 L 09/06/21 06:15 09/06/21 06:30 09/06/21 06:45 Temperature Pulse Rate 75 75 74 Respiratory Rate 25 H 34 H 22 Blood Pressure O2 Sat by Pulse Oximetry 94 L 95 94 L 09/06/21 07:00 09/06/21 07:15 09/06/21 07:30 Temperature Pulse Rate 77 74 74 Respiratory Rate 26 H 26 H 25 H Blood Pressure 147/84 O2 Sat by Pulse Oximetry 97 99 97 09/06/21 07:50 09/06/21 08:00 09/06/21 08:01 Temperature 98 F Pulse Rate 76 67 68 Respiratory Rate 27 H 23 23 Blood Pressure 141/89 O2 Sat by Pulse Oximetry 94 L 99 99 09/06/21 08:15 09/06/21 08:30 09/06/21 08:45 Temperature Pulse Rate 68 68 71 Respiratory Rate 30 H 28 H 21 Blood Pressure O2 Sat by Pulse Oximetry 100 95 100 09/06/21 09:00 09/06/21 09:01 09/06/21 09:15 Temperature Pulse Rate 75 76 70 Respiratory Rate 30 H 19 Blood Pressure 124/83 O2 Sat by Pulse Oximetry 94 L 98 100 09/06/21 09:43 09/06/21 09:45 09/06/21 10:00 Temperature Pulse Rate 76 75 74 Respiratory Rate 45 H 26 H Blood Pressure O2 Sat by Pulse Oximetry 96 95 09/06/21 10:15 09/06/21 10:30 09/06/21 10:45 Temperature Pulse Rate 78 79 79 Respiratory Rate 25 H 24 26 H Blood Pressure O2 Sat by Pulse Oximetry 97 100 99 09/06/21 11:00 09/06/21 11:15 09/06/21 11:30 Temperature Pulse Rate 79 81 83 Respiratory Rate 23 25 H 27 H Blood Pressure O2 Sat by Pulse Oximetry 99 99 99 09/06/21 11:45 09/06/21 12:00 09/06/21 12:15 Temperature Pulse Rate 82 81 81 Respiratory Rate 25 H 26 H 23 Blood Pressure O2 Sat by Pulse Oximetry 100 99 98 09/06/21 12:30 09/06/21 12:45 09/06/21 13:00 Temperature Pulse Rate 81 82 81 Respiratory Rate 24 24 24 Blood Pressure O2 Sat by Pulse Oximetry 98 98 99 09/06/21 13:15 09/06/21 13:30 09/06/21 13:45 Temperature Pulse Rate 85 80 83 Respiratory Rate 30 H 26 H 26 H Blood Pressure O2 Sat by Pulse Oximetry 98 98 98 09/06/21 14:00 09/06/21 14:15 09/06/21 14:30 Temperature Pulse Rate 83 81 81 Respiratory Rate 26 H 27 H 25 H Blood Pressure O2 Sat by Pulse Oximetry 98 99 98 09/06/21 14:45 09/06/21 15:00 09/06/21 15:15 Temperature Pulse Rate 79 81 79 Respiratory Rate 26 H 25 H 26 H Blood Pressure O2 Sat by Pulse Oximetry 98 98 98 09/06/21 15:30 09/06/21 15:45 09/06/21 16:00 Temperature 100.0 F H Pulse Rate 78 76 83 Respiratory Rate 22 22 28 H Blood Pressure O2 Sat by Pulse Oximetry 99 98 99 09/06/21 16:15 09/06/21 16:30 09/06/21 16:45 Temperature Pulse Rate 77 76 76 Respiratory Rate 24 20 20 Blood Pressure O2 Sat by Pulse Oximetry 99 99 99 09/06/21 17:00 09/06/21 17:06 09/06/21 17:15 Temperature Pulse Rate 78 80 78 Respiratory Rate 26 H 28 H 25 H Blood Pressure 139/75 139/75 O2 Sat by Pulse Oximetry 100 99 99 09/06/21 17:30 09/06/21 17:45 09/06/21 18:00 Temperature 99.3 F Pulse Rate 77 74 78 Respiratory Rate 25 H 22 24 Blood Pressure 124/73 O2 Sat by Pulse Oximetry 100 100 100 09/06/21 18:15 09/06/21 18:30 09/06/21 18:45 Temperature Pulse Rate 79 76 76 Respiratory Rate 25 H 23 26 H Blood Pressure O2 Sat by Pulse Oximetry 98 98 100 09/06/21 19:00 09/06/21 19:15 09/06/21 19:30 Temperature Pulse Rate 76 78 76 Respiratory Rate 26 H 23 27 H Blood Pressure 124/69 O2 Sat by Pulse Oximetry 99 99 98 09/06/21 19:45 09/06/21 20:00 09/06/21 20:15 Temperature 98.3 F Pulse Rate 79 78 81 Respiratory Rate 23 25 H 27 H Blood Pressure 135/81 O2 Sat by Pulse Oximetry 99 99 99 09/06/21 20:28 09/06/21 20:30 09/06/21 20:45 Temperature Pulse Rate 79 78 85 Respiratory Rate 24 27 H Blood Pressure O2 Sat by Pulse Oximetry 100 100 99 09/06/21 21:00 09/06/21 21:15 09/06/21 21:30 Temperature Pulse Rate 79 80 80 Respiratory Rate 23 27 H 25 H Blood Pressure 139/65 O2 Sat by Pulse Oximetry 100 100 97 09/06/21 21:45 09/06/21 22:00 09/06/21 22:03 Temperature Pulse Rate 82 86 87 Respiratory Rate 25 H 26 H 27 H Blood Pressure 139/100 136/89 O2 Sat by Pulse Oximetry 97 98 98 09/06/21 22:15 09/06/21 22:30 09/06/21 22:45 Temperature Pulse Rate 85 88 94 H Respiratory Rate 27 H 28 H 28 H Blood Pressure O2 Sat by Pulse Oximetry 97 97 97 09/06/21 23:00 09/06/21 23:15 09/06/21 23:30 Temperature Pulse Rate 84 86 84 Respiratory Rate 26 H 28 H 21 Blood Pressure 121/58 O2 Sat by Pulse Oximetry 97 98 97 09/06/21 23:38 09/06/21 23:45 09/07/21 00:00 Temperature 98.2 F Pulse Rate 78 76 Respiratory Rate 14 26 H 25 H Blood Pressure 130/75 O2 Sat by Pulse Oximetry 97 94 L 09/07/21 00:15 09/07/21 00:30 09/07/21 00:38 Temperature Pulse Rate 77 71 Respiratory Rate 28 H 20 14 Blood Pressure O2 Sat by Pulse Oximetry 96 95 09/07/21 00:45 09/07/21 01:00 09/07/21 01:15 Temperature Pulse Rate 76 75 77 Respiratory Rate 23 25 H 25 H Blood Pressure 127/80 O2 Sat by Pulse Oximetry 99 96 99 09/07/21 01:30 09/07/21 01:45 09/07/21 01:58 Temperature Pulse Rate 74 75 71 Respiratory Rate 22 22 21 Blood Pressure O2 Sat by Pulse Oximetry 99 100 100 09/07/21 02:00 09/07/21 02:01 09/07/21 02:15 Temperature Pulse Rate 73 69 Respiratory Rate 20 20 Blood Pressure 114/69 O2 Sat by Pulse Oximetry 100 99 09/07/21 02:30 09/07/21 02:45 09/07/21 03:00 Temperature Pulse Rate 68 78 75 Respiratory Rate 18 27 H 19 Blood Pressure O2 Sat by Pulse Oximetry 99 98 96 09/07/21 04:00 09/07/21 05:00 09/07/21 06:00 Temperature 97.7 F Pulse Rate 78 77 76 Respiratory Rate 17 18 26 H Blood Pressure 128/72 133/72 132/76 O2 Sat by Pulse Oximetry 96 98 98 09/07/21 08:20 Temperature Pulse Rate Respiratory Rate Blood Pressure O2 Sat by Pulse Oximetry 98 Labs: Laboratory Last Values WBC 4.5 X10^3/uL (3.6-10.0) 09/07/21 04:45 RBC 4.52 X10^6/uL (3.5-5.4) 09/07/21 04:45 Hgb 11.8 g/dL (12.0-16.0) L 09/07/21 04:45 Hct 34.7 % (36.0-47.0) L 09/07/21 04:45 MCV 76.8 fL (80.0-100.0) L 09/07/21 04:45 MCH 26.1 pg (27.0-34.0) L 09/07/21 04:45 MCHC 34.0 g/dL (33.0-35.0) 09/07/21 04:45 RDW 15.2 % (11.6-16.5) 09/07/21 04:45 Plt Count 366 X10^3/uL (150.0-450.0) 09/07/21 04:45 MPV 6.3 fL (7.4-11.0) L 09/07/21 04:45 Neut % (Auto) 52.0 % (42.0-75.0) 09/07/21 04:45 Lymph % (Auto) 32.9 % (21.0-51.0) 09/07/21 04:45 [place] % (Auto) 9.8 % (0.0-13.0) 09/07/21 04:45 Eos % (Auto) 4.4 % (0.9-2.9) H 09/07/21 04:45 Baso % (Auto) 0.9 % (0.2-1.0) 09/07/21 04:45 Neut # (Auto) 2.3 x10^3/uL (2.2-4.8) 09/07/21 04:45 Lymph # (Auto) 1.5 X10^3/uL (1.3-2.9) 09/07/21 04:45 [place] # (Auto) 0.4 x10^3/uL (0.3-0.8) 09/07/21 04:45 Eos # (Auto) 0.2 x10^3/uL (0.0-0.2) 09/07/21 04:45 Baso # (Auto) 0.0 X10^3/uL (0.0-0.1) 09/07/21 04:45 Absolute Nucleated RBC 0.0 /100WBC 09/07/21 04:45 Sodium 131 mmol/L (136-145) L 09/07/21 04:45 Corrected Sodium TNP 09/07/21 04:45 Potassium 3.9 mmol/L (3.5-5.1) 09/07/21 04:45 Chloride 98 mmol/L (98-107) 09/07/21 04:45 Carbon Dioxide 27.3 mmol/L (21-32) 09/07/21 04:45 BUN 4 mg/dL (7-18) L 09/07/21 04:45 Creatinine 0.64 mg/dL (0.55-1.02) 09/07/21 04:45 Est GFR (MDRD) Af Amer > 60 (>60) 09/07/21 04:45 Est GFR (MDRD) Non-Af > 60 (>60) 09/07/21 04:45 Glucose 103 mg/dL (65-99) H 09/07/21 04:45 Calcium 8.4 mg/dL (8.5-10.1) L 09/07/21 04:45 Corrected Calcium 9.5 mg/dL (8.5-10.1) 09/07/21 04:45 Magnesium 2.3 mg/dL (1.7-2.9) 09/06/21 04:48 Total Bilirubin 0.50 mg/dL (0.2-1.0) 09/07/21 04:45 AST 11 Units/L (15-37) L 09/07/21 04:45 ALT 21 Units/L (12-78) 09/07/21 04:45 Alkaline Phosphatase 81 Units/L (46-116) 09/07/21 04:45 Creatine Kinase 42 Units/L (26-192) 09/05/21 11:20 CK-MB (CK-2) < 1.0 ng/mL (0-4.0) 09/05/21 11:20 CK/CKMB % Calc 2.4 % (<4) 09/05/21 11:20 Troponin I < 0.02 ng/mL (0-1.5) 09/05/21 11:20 Total Protein 6.8 g/dL (6.4-8.2) 09/07/21 04:45 Albumin 2.6 g/dL (3.4-5.0) L 09/07/21 04:45 Globulin 4.2 g/dL (2.5-4.5) 09/07/21 04:45 Albumin/Globulin Ratio 0.6 Ratio (1.1-2.1) L 09/07/21 04:45 Specimen Type Catherized urine 09/05/21 12:23 Urine Color Yellow (YELLOW) 09/05/21 12:23 Urine Appearance Clear (CLEAR) 09/05/21 12: Urine pH 7.0 (5.0 - 8.0) 09/05/21 12: Ur Specific [place] 1.010 (1.000-1.030) 09/05/21 12:23 Urine Protein 2+ (NEGATIVE) 09/05/21 12:23 Urine Glucose (UA) Negative (NEGATIVE) 09/05/21 12:23 Urine Ketones Negative (NEGATIVE) 09/05/21 12:23 Urine Occult Blood 2+ (NEGATIVE) 09/05/21 12:23 Urine Nitrite Negative (NEGATIVE) 09/05/21 12:23 Urine Bilirubin Negative (NEGATIVE) 09/05/21 12:23 Urine Urobilinogen Normal (NORMAL) 09/05/21 12:23 Ur Leukocyte Esterase 1+ (NEGATIVE) 09/05/21 12:23 Urine RBC 3-5 /HPF (0-3) A 09/05/21 12:23 Urine WBC 0-2 /HPF (0-5) 09/05/21 12:23 Ur Squamous Epith Cells Rare /HPF (NEGATIVE) 09/05/21 12:23 Amorphous Sediment Trace /HPF (NEGATIVE) 09/05/21 12:23 Urine Bacteria Negative /HPF (NEGATIVE) 09/05/21 12:23 Ur Culture Indicated? 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 Pt is to keep follow up appointment as instructed and take medications as ordered. Discharge Medications Discharge Medications: No Known Drug Allergies Allergy (Verified 03/05/18 10:04) Follow up and Referral Follow Up: 1 Week Discharge Disposition Discharge Disposition: Home Discharge Condition: Stable Discharge Plan Discharge Plan Hospital Course: Pt is a 55 y/o female past medical history of Intellectual disability, Seizures, admitted for altered mental status, nausea/vomiting, and Covid-19 infection. Her hospital/treatment course included: IVF, IV zofran prn, carafate, and supplemental O2. CTAP was obtained that was negative for any acute findings. Pt responded well to treatments. She was weaned off supplemental O2 and was at baseline mental status on discharge. Pt was discharged in stable condition, instructed to follow up with pcp in 3-5 days. Patient Disposition: 01 HOME, SELF-CARE Condition: Stable Health Concerns: Post Hospitalization: new medications and changes needed to prevent readmission or further decline. Pt educated and given instructions on all concerns. Care Plan Goals: Problem: Respiratory Complications Goal: Improved Uncomplicated Respiratory Status Instructions: Follow provided instructions. Follow up with primary physician as directed. Contact primary care physician or report to the closest Emergency Room if condition worsens. Plan of Treatment: Continue with present treatment and follow up plan. Pt is to keep follow up appointment as instructed and take medications as ordered. Prescriptions: Continued lamotrigine [Lamictal] 100 MG tablet 250 mg PO BID RF: 0 levetiracetam [Keppra] 1,000 MG tablet 1,000 mg PO TID RF: 0 Aptiom 600 MG tablet 800 mg PO HS RF: 0 Orders to Discharge Patient Discharge Orders: Discharge (Routine); Ordered 09/07/21 Ordered By: Ronny Cox Follow ups/Referrals Follow ups/Referrals: SUMAYA MANZANARES [Primary Care Provider] - 09/25/21 10:15 am Instructions Instructions: Fall Prevention in the Home, Adult, [id number], Confusion, Dehydration, Adult, [id number], How to Wear and Take Off Your Mask - [facility] (12/15/2020), 10 Things You Can Do to Manage Your COVID-19 Symptoms at Home - [facility] (03/16/2020), COVID-19, COVID-19: What to Do if You Are Sick - [facility] (09/15/2020) Stand Alone Forms: Precautions for COVID19, [facility], Patient Portal, Social Distancing
[2021-09-07] MEDS: LOVENOX INJ 40 MG SYR SC SCH (08:47)
[2021-09-07] MEDS: LAMICTAL TAB 100 MG PO SCH (08:48)
[2021-09-07] MEDS: NS 1,000 ML IV 1,000 ML IV SCH (09:59)
[2021-09-07 12:24] VITALS: BP 129/74
== END 2021-09-07 12:24 | disposition home or self-care (01) ==
LOC: ICU 10:48 → ER 10:48 → ICU 14:40
PROVIDERS: ADMIT Family Medicine; ATTEND Family Medicine
DX: F79 Unspecified intellectual disabilities; R06.02 Shortness of breath; R13.11 Dysphagia, oral phase; R26.89 Other abnormalities of gait and mobility; R41.82 Altered mental status, unspecified; R42 Dizziness and giddiness; E87.6 Hypokalemia; U07.1 COVID-19; G80.8 Other cerebral palsy